=== PATIENT | female | born 1955 | race Caucasian/White ===

== ENCOUNTER 2024-02-11 08:38 | Inpatient (IN) | payer BC, MEDICARE ==
[~2024-02-11] VITALS: Ht 162.6 cm; Wt 75.5 kg
--- NOTE | 2024-02-11 09:01 | ED.PDOC ---
History of Present Illness HPI Comments 68 y/o F, with a Hx of Eliquis use, presents with c/o left foot pain, swelling, and black discoloration s/p injury, today. Patient endorses on injuring her foot on 01/20/24 after dropping a "table" object on it then. Since that day, she has had a boot cast placed over said foot. 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 She denies any numbness, weakness, tingling, or other associated symptoms or modifiers at this time. Chief Complaint: Lower Extremity Time Seen by MD: 08:45 Reviewed Notes: Nurses Notes, Medications, Allergies Allergies: Coded Allergies: Aspirin (Verified Allergy, Intermediate, 02/11/24) Flu Virus Vaccine (Verified Allergy, Intermediate, 02/11/24) Naproxen (Verified Allergy, Intermediate, 02/11/24) Penicillins (Verified Allergy, Intermediate, 02/11/24) Sulfa Antibiotics (Verified Allergy, Intermediate, 02/11/24) Tetracycline (Verified Allergy, Intermediate, 02/11/24) Yellow Dye (Verified Allergy, Intermediate, 02/11/24) Benzocaine (Verified Allergy, Mild, 02/11/24) Information Source: Patient Mode of Arrival: Ambulatory Severity: Moderate Timing: Hours Duration: Since onset Prehospital treatment: None Past Medical History PAST MEDICAL HISTORY: Cancer Past Medical History (Other): mitral valve insufficiency, pulmonary arterial HTN papillary thyroid disease, invasive cluctal carcinoma, osteoporosis Surgical History: Denies all surgeries MULTIMEDIA JOURNALIST History: Denies all MULTIMEDIA JOURNALIST Hx Family History Family History: Unknown Social History Smoker: Non-Smoker Alcohol: Denies ETOH Use Drugs: Denies Drug Use Lives In: Home Musculoskeletal: reports: others (left foot pain and swelling) Integumetry: reports: change in color (left foot black discoloration ) Physical Exam General Appearance: Moderate Distress HEENT: Normal ENT Inspection, Pharynx Normal, TMs Normal Neck: Full Range of Motion, Non-Tender, Normal, Normal Inspection Respiratory: Chest Non-Tender, Lungs Clear, No Accessory Muscle Use, No Res piratory Distress, Normal Breath Sounds Cardiovascular: No Edema, No JVD, No Murmur, No Gallop, Normal Peripheral Pulses, Regular Rate/Rhythm Breast Exam: Deferred Gastrointestinal: No Organomegaly, Non Tender, No Pulsatile Mass, Normal Bowel Sounds, Soft Genitalia: Deferred Pelvic: Deferred Rectal: Deferred Extremities: Swelling (Left lower extremity), Other (Left boot) Musculoskeletal : Apperance: Normal Neurologic: Alert, No Motor Deficits, No Sensory Deficits Cerebellar Function: NOT DONE Reflexes: NOT DONE Skin: Normal Color Peripheral Pulses: 3+ Radial (R), 3+ Radial (L) Lymphatic: No Adenopathy Was a procedure done? Was a procedure done?: No Differential Dx Considerations may include: LLE DVT, fracture, dislocation, contusions, bruising X-Ray, Labs, Meds, VS Vital Signs Date Time Temp Pulse Resp B/P (MAP) Pulse Ox O2 Delivery O2 Flow Rate FiO2 02/11/24 08:53 99.5 83 18 185/100 (128) 97 Lab Test 02/11/24 09:19 Range/Units White Blood Count 6.0 4.4-10.8 10^3/uL Red Blood Count 5.10 4.0-5.20 10^6/uL Hemoglobin 16.1 12.2-16.2 g/dL Hematocrit 47.8 H 36.0-46.0 % Mean Corpuscular Volume 93.8 80.0-100.0 fL Mean Corpuscular Hemoglobin 31.5 28.0-32.0 pg Mean Corpuscular Hemoglobin Concent 33.6 32.0-36.0 g/dL Red Cell Distribution Width 13.1 11.8-14.3 % Platelet Count 254 140-450 10^3/uL Mean Platelet Volume 8.4 6.9-10.8 fL Neutrophils (%) (Auto) 58.1 37.0-80.0 % Lymphocytes (%) (Auto) 30.1 10.0-50.0 % Monocytes (%) (Auto) 6.5 0.0-12.0 % Eosinophils (%) (Auto) 4.2 0.0-7.0 % Basophils (%) (Auto) 1.1 0.0-2.0 % Neutrophils # (Auto) 3.5 1.6-8.6 10 ^3/uL Lymphocytes # (Auto) 1.8 0.4-5.4 10 ^3/uL Monocytes # (Auto) 0.4 0-1.3 10 ^3/uL Eosinophils # (Auto) 0.3 0-0.8 10 ^3/uL Basophils # (Auto) 0.1 0-0.2 10 ^3/uL Nucleated Red Blood Cells 0.1 % Sodium Level Pending Potassium Level Pending Chloride Level Pending Carbon Dioxide Level Pending Anion Gap Pending Blood Urea Nitrogen Pending Creatinine Pending Glomerular Filtration Rate Calc Pending BUN/Creatinine Ratio Pending Serum Glucose Pending Calcium Level Pending B-Type Natriuretic Peptide Pending Patient alert. Chronic condition. Wearing a boot. Vitals stable pain Complaining of leg pain. Left lower extremity swelling. She is on Eliquis for history of PE. WBC within normal limits. Hemoglobin within normal limits. She will need MRI. Explained to the patient. Continue cardiac monitoring. Pain management. Time of 1ST Reevaluation: 09:15 Reevaluation 1ST: Unchanged Patient Education/Counseling: Diagnosis, Treatment Family Education/Counseling: No Family Present Departure 1 Departure Time of Disposition: 09:59 Impression: Primary Impression: Swelling of lower extremity Additional Impressions: Foot pain Qualified Codes: M79.672 - Pain in left foot Disorder of ligament, left ankle Disposition: ADMITTED INPATIENT Admit to: Med Surg Condition: Guarded Critical Care Note Critical Care Time?: No Stability Stability form required: No Heart Score Heart Score: Heart Score Response (Comments) Value History N/A 0 EKG N/A 0 Age N/A 0 Risk Factors N/A 0 Troponin N/A 0 Total 0 I personally scribed for TREY LAM MD ([email or web address]) on 02/11/24 at 09:00. Electronically submitted by Gabriel Nolasco [email or web address]). TREY LAM MD Feb 11, 2024 09:00
--- NOTE | 2024-02-11 09:30 | DVH ---
CHEST RADIOGRAPH Indication: sob Technique: Single frontal view of the chest was obtained COMPARISON: None FINDINGS: Lines and Tubes: None Lungs: Clear Pleura: No effusion. No pneumothorax. Cardiomediastinal contours: Unremarkable Bones: Unremarkable IMPRESSION: No acute disease.
[2024-02-11 09:38] LABS: Basophils # (auto) 0.1 10 ^3/uL (0-0.2); Basophils % (auto) 1.1 % (0.0-2.0); Eosinophils # (auto) 0.3 10 ^3/uL (0-0.8); Eosinophils % (auto) 4.2 % (0.0-7.0); Hematocrit 47.8 % (36.0-46.0); Hemoglobin 16.1 g/dL (12.2-16.2); Lymphocytes # (auto) 1.8 10 ^3/uL (0.4-5.4); Lymphocytes % (auto) 30.1 % (10.0-50.0); Mean Corpuscular Hemoglobin 31.5 pg (28.0-32.0); Mean Corpuscular Hgb Conc. 33.6 g/dL (32.0-36.0); Mean Corpuscular Volume 93.8 fL (80.0-100.0); Monocytes # (auto) 0.4 10 ^3/uL (0-1.3); Monocytes % (auto) 6.5 % (0.0-12.0); Neutrophils # (auto) 3.5 10 ^3/uL (1.6-8.6); Neutrophils % (auto) 58.1 % (37.0-80.0); Nucleated Red Blood Cells % 0.1 %; Platelet Count (auto) 254 10^3/uL (140-450); Red Cell Distribution Width 13.1 % (11.8-14.3)
[2024-02-11 10:11] LABS: Chloride 106 mmol/L (98-107); Potassium 4.2 mmol/L (3.5-5.1); Sodium 141 mmol/L (136-145)
[2024-02-11 10:12] LABS: Anion Gap 6 (5-15); Carbon Dioxide 29 mmol/L (20-31)
[2024-02-11 10:18] LABS: BUN/Creatinine Ratio 17.2 (10.0-20.0); Blood Urea Nitrogen 15 mg/dL (9-23); Glucose 100 mg/dL (74-106)
[2024-02-11] MEDS ORDERED: MORPHINE SULFATE INJ 2 MG/ml SYRG IV PRN ×2 (10:30)
[2024-02-11] MEDS ORDERED: HYDROcodone-ACET 5/325MG TAB PO PRN (10:30)
[2024-02-11] MEDS ORDERED: NITROGLYCERIN 0.4 MG SL TAB SL PRN (10:30)
[2024-02-11] MEDS ORDERED: DOCUSATE SOD 100 MG CAP PO PRN (10:30)
--- NOTE | 2024-02-11 10:30 | DVHHP2 ---
History of Present Illness Reason for Visit: Swelling of lower extremity History of Present Illness The patient is a 68-year-old female with multiple past medical history including mitral valve insufficiency, thyroid disease, and osteoporosis who presented to [facility] with complaint of left foot pain and swelling. Patient reports she had food injury January 20, 2024 after dropping a table object on her foot, it develops black discoloration, painful, and increased swelling. 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 Patient was seen and evaluated in the ED, laboratory data shows WBC 6.0 platelets 254, sodium 141, potassium 4.2, BUN 15, creatinine 0.87, GFR 73, glucose 100, BNP 37.90, blood pressure 185/100 trending down to 138/78, heart rate 72, temperature 98.2 F, O2 saturation 96% room air. Extremity venous studies shows evidence of deep venous thrombosis left lower extremity. Please see medication section in the computer. On my assessment, patient denied chest pain, no headache, no dizziness, no diaphoresis, no shortness of breath, no nausea, no vomiting, no fever, no chills. Patient was admitted for further evaluation and medical management. Past Medical History Mitral valve insufficiency, pulmonary arterial HTN papillary thyroid disease, invasive cluctal carcinoma, osteoporosis Past Surgical History Denies all surgeries Family History Reviewed, noncontributory to the management of this case. Past Social History The patient lives at home, denies smoking, alcohol or illicit drugs abuse. Review of Systems Constitutional: No: Fever, Chills, Sweats, Weakness, Malaise, Other Eyes: No: Pain, Vision change, Conjunctivae inflammation, Eyelid inflammation, Other, Redness ENT: No: Ear pain, Ear discharge, Nose pain, Nose discharge, Nose congestion, Mouth pain, Mouth swelling, Throat pain, Throat swelling, Other Respiratory: No: Cough, Dry, Shortness of breath, SOB with excertion, Wheezing, Hemoptysis, Pleuritic Pain, Sputum, Wheezing, Other Cardiovascular: No: Chest Pain, Palpitations, Orthopnea, Paroxysmal Noc. Dyspnea, Edema, Lt Headedness, Other Gastrointestinal: No: Nausea, Vomiting, Abdominal Pain, Diarrhea, Constipation, Melena, Hematochezia, Other Genitourinary: No Dysuria, No Frequency, No Incontinence, No Hematuria, No Retention, No Other Musculoskeletal: other (left foot pain and swelling.); No: neck pain, shoulder pain, arm pain, back pain, hand pain, leg pain, foot pain Skin: Rash (left foot black discoloration.); No: Lesions, Jaundice, Bruising, Other Neurological: No: Weakness, Numbness, Incoordination, Change in speech, Confusion, Seizures, Other Allergies: Coded Allergies: Aspirin (Verified Allergy, Intermediate, 02/11/24) Flu Virus Vaccine (Verified Allergy, Intermediate, 02/11/24) Naproxen (Verified Allergy, Intermediate, 02/11/24) Penicillins (Verified Allergy, Intermediate, 02/11/24) Sulfa Antibiotics (Verified Allergy, Intermediate, 02/11/24) Tetracycline (Verified Allergy, Intermediate, 02/11/24) Yellow Dye (Verified Allergy, Intermediate, 02/11/24) Benzocaine (Verified Allergy, Mild, 02/11/24) Medications Current Medications Medications Dose Ordered Sig/Reshma Route Start Time Stop Time Status Last Admin Dose Admin Levothyroxine Sodium 50 mcg QAM@0600 PO 02/12/24 06:00 UNV Apixaban 5 mg BID PO 02/11/24 22:00 UNV Sodium Chloride 10 ml Q8HR IV 02/11/24 14:00 UNV Acetaminophen/ Hydrocodone Bitart 1 tab Q4HP PRN PO 02/11/24 10:30 UNV Ondansetron HCl 4 mg Q4HP PRN IV 02/11/24 10:30 UNV Docusate Sodium 100 mg BIDPRN PRN PO 02/11/24 10:30 UNV Acetaminophen 650 mg Q6HP PRN PO 02/11/24 10:30 UNV Morphine Sulfate 2 mg Q4HPRN PRN IV 02/11/24 10:30 UNV Nitroglycerin 0.4 mg Q5MINP PRN SL 02/11/24 10:30 UNV Morphine Sulfate 2 mg Q30M PRN IV 02/11/24 10:30 UNV Exam Vital Signs Vital Signs Date Time Temp Pulse Resp B/P (MAP) Pulse Ox O2 Delivery O2 Flow Rate FiO2 02/11/24 10:08 98.6 71 20 138/78 (98) 96 98.6 General Appearance: Alert, Oriented X3, Cooperative, No acute distress HEENT: Atraumatic, PERRLA, EOMI, Mucous membr. moist/pink Respiratory: Clear to auscultation, Normal air movement Cardiovascular: Regular rate, Normal S1, Normal S2, No murmurs Abdominal: Normal bowel sounds, Soft, No tenderness, No hepatospenomegaly, No masses Extremities: No clubbing, No cyanosis, No edema, Normal pulses, Other (Left foot tenderness/swelling) Skin: No rashes, No breakdown, No significant lesion Neuro: Normal speech, Normal tone, Sensation intact, Cranial nerves 3-12 NL, Reflexes 2+, Other (Left foot weakness) Psych/Mental Status: Mental status NL, Mood NL Labs/Xrays Labs Test 02/11/24 09:19 Range/Units White Blood Count 6.0 4.4-10.8 10^3/uL Red Blood Count 5.10 4.0-5.20 10^6/uL Hemoglobin 16.1 12.2-16.2 g/dL Hematocrit 47.8 H 36.0-46.0 % Mean Corpuscular Volume 93.8 80.0-100.0 fL Mean Corpuscular Hemoglobin 31.5 28.0-32.0 pg Mean Corpuscular Hemoglobin Concent 33.6 32.0-36.0 g/dL Red Cell Distribution Width 13.1 11.8-14.3 % Platelet Count 254 140-450 10^3/uL Mean Platelet Volume 8.4 6.9-10.8 fL Neutrophils (%) (Auto) 58.1 37.0-80.0 % Lymphocytes (%) (Auto) 30.1 10.0-50.0 % Monocytes (%) (Auto) 6.5 0.0-12.0 % Eosinophils (%) (Auto) 4.2 0.0-7.0 % Basophils (%) (Auto) 1.1 0.0-2.0 % Neutrophils # (Auto) 3.5 1.6-8.6 10 ^3/uL Lymphocytes # (Auto) 1.8 0.4-5.4 10 ^3/uL Monocytes # (Auto) 0.4 0-1.3 10 ^3/uL Eosinophils # (Auto) 0.3 0-0.8 10 ^3/uL Basophils # (Auto) 0.1 0-0.2 10 ^3/uL Nucleated Red Blood Cells 0.1 % Sodium Level 141 136-145 mmol/L Potassium Level 4.2 3.5-5.1 mmol/L Chloride Level 106 98-107 mmol/L Carbon Dioxide Level 29 20-31 mmol/L Anion Gap 6 5-15 Blood Urea Nitrogen 15 9-23 mg/dL Creatinine 0.87 0.550-1.02 mg/dL Glomerular Filtration Rate Calc 73 >90 mL/min BUN/Creatinine Ratio 17.2 10.0-20.0 Serum Glucose 100 74-106 mg/dL Calcium Level 10.0 8.7-10.4 mg/dL PATIENT: PREM WATTSCCT: [id number] UNIT: [id number] : 1955 LOC: ER ROOM / BED: / AGE / SEX: 68 / F ADM STATUS: REG ER SERVICE [id number] ORDERING PHYSICIAN: TREY LAM MD PROCEDURE(s): LLDVT - LT Lower DVT REASON: dvt ORDER NUMBER(s): [id number], ACCESSION NUMBER(s): [id number] US LT LOWER DVT US 02/11/2024 10:04 AM Clinical History: dvt Comparison: None Technique: Duplex Doppler evaluation of the deep venous system of the left lower extremity from the common femoral vein to the popliteal vein including color Doppler and spectral/pulsed waveform analysis was performed. Findings: The common femoral vein demonstrates appropriate compressibility and waveform variability. There is compressibility/patency of the great saphenous vein at the proximal thigh. The femoral vein demonstrates appropriate compressibility and waveform zhen iability. The deep femoral vein demonstrates appropriate compressibility and waveform variability. The popliteal vein demonstrates appropriate compressibility and waveform variability. There is color flow in the tibioperoneal trunk and posterior tibial vein. Impression: 1. No deep venous thrombosis left lower extremity. If clinical concern/symptoms persist or worsen, short-interval follow-up study is suggested. ORDERING PHYSICIAN: TREY LAM MD PROCEDURE(s): CXRP - CHEST PORTABLE REASON: sob ORDER NUMBER(s): [id number], ACCESSION NUMBER(s): [id number] CHEST RADIOGRAPH Indication: sob Technique: Single frontal view of the chest was obtained COMPARISON: None FINDINGS: Lines and Tubes: None Lungs: Clear Pleura: No effusion. No pneumothorax. Cardiomediastinal contours: Unremarkable Bones: Unremarkable IMPRESSION: No acute disease. Assessment/Plan Assessment/Plan Swelling of lower extremity Foot pain Pain in left foot Disorder of ligament, left ankle Plan 1. Admit to med surge unit 2. Breathing treatment 3. Pain control management 4. Management of fluids and electrolytes 5. Consultation for hospitalist 6. Diagnostic tests extremity venous study 7. DVT prophylaxis-on Lovenox 8. Repeat labs CBC, CMP in a.m. 9. Continue with current medical management 10. Treatment plan discussed with patient and RN. Patient verbalized understanding. Plan discussed with: Patient, Other (RN) My Orders Orders - NAILA SANDERS DNP Procedure Category Date Status Time Levothyroxine Tablet PHA 02/12/24 Logged (Synthroid Tablet) 06:00 Apixaban (Eliquis) PHA 02/11/24 Logged 22:00 Admit ADMIT 02/11/24 Transmitted 10:21 Allergies [facility] 02/11/24 In Process 10:21 Code Status CODE 02/11/24 Transmitted 10:21 Sodium Chloride Lock PHA 02/11/24 Logged (Saline Lock Ns) 14:00 Oxygen Per Hour RT 02/11/24 Transmitted 10:21 Hydrocodone-Acet PHA 02/11/24 Logged 5/325mg Tab (Willcox 10:30 Ondansetron Hcl PHA 02/11/24 Logged (Zofran) 10:30 Docusate Sodium PHA 02/11/24 Logged Capsule (Colace 10:30 Complete Blood Count LAB 02/12/24 Verified 04:00 Comprehensive LAB 02/12/24 Verified Metabolic Panel 04:00 Cardiac DIET 02/11/24 Transmitted Diet-2gna,Lofat,Lochol Lunch Condition: Serious JOANNE 02/11/24 In Process 10:21 Acetaminophen Tablet PHA 02/11/24 Logged (Tylenol Tablet) 10:30 Bedrest With Bathroom JOANNE 02/11/24 In Process Privileg 10:21 Morphine Sulfate PHA 02/11/24 Transmitted Injection 10:30 Sequential JOANNE 02/11/24 In Process Compression Device Nitroglycerin PHA 02/11/24 Transmitted Sublingual (Ntrostat 10:30 Morphine Sulfate PHA 02/11/24 Logged Injection 10:30 Notify Of Changes JOANNE 02/11/24 In Process From Base 10:21 Emergency Dysrhythmia JOANNE 02/11/24 In Process Protocol 10:21 Oxygen By Nasal RT 02/11/24 Transmitted Cannula 10:21 Podiatry Consult CONS 02/11/24 Verified 10:28 Problem List: (1) Swelling of lower extremity (2) Foot pain (3) Pain in left foot (4) Disorder of ligament, left ankle Date of Service: Feb 11, 2024 Billing Provider: NAILA SANDERS DNP Common Visit Codes: [id number] INP/OBS CARE (HIGH) NAILA SANDERS DNP Feb 11, 2024 10:30
--- NOTE | 2024-02-11 10:40 | DVH ---
US LT LOWER DVT US 02/11/2024 10:04 AM Clinical History: dvt Comparison: None Technique: Duplex Doppler evaluation of the deep venous system of the left lower extremity from the common femor al vein to the popliteal vein including color Doppler and spectral/pulsed waveform analysis was perfo rmed. Findings: The common femoral vein demonstrates appropriate compressibility and waveform variability. There is compressibility/patency of the great saphenous vein at the proximal thigh. The femoral vein demonstrates appropriate compressibility and waveform variability. The deep femoral vein demonstrates appropriate compressibility and waveform variability. The popliteal vein demonstrates appropriate compressibility and waveform variability. There is color flow in the tibioperoneal trunk and posterior tibial vein. Impression: 1. No deep venous thrombosis left lower extremity. If clinical concern/symptoms persist or worsen, s hort-interval follow-up study is suggested.
[2024-02-11 11:43] LABS: Urine Bacteria None Seen /hpf (None Seen); Urine WBC None Seen /hpf (0 - 5)
[2024-02-11 12:14] LABS: Urine Blood Negative /uL (Negative); Urine Clarity Clear (Clear); Urine Color Light-Yellow (Yellow); Urine Protein, UAD Negative (Negative); Urine Specific Gravity 1.015 (1.001-1.035); Urine Squamous Epithelial Cell FEW /hpf (<5); Urine Urobilinogen Normal (Negative); Urine pH 6.5 (5.0-9.0)
[2024-02-11] MEDS: SODIUM CHLOR 0.9% PF (SALINE LOCK) 10ML VIAL/SYR IV SCH (14:15)
[2024-02-11 14:44] VITALS: BP 120/75; PULSE 56; RESP 18; TEMP 89; O2SAT 97
[2024-02-11 17:00] VITALS: BP 146/74; PULSE 95; TEMP 97.5; O2SAT 94
[2024-02-11] MEDS ORDERED: DILT-14 PO (19:32)
[2024-02-11] MEDS ORDERED: LEVO-848 PO (19:32)
[2024-02-11] MEDS ORDERED: LEVO50TA3 PO (19:32)
[2024-02-11] MEDS ORDERED: BECL80AE11 IN (19:32)
[2024-02-11] MEDS ORDERED: APIX5TAB PO (19:32)
[2024-02-11] MEDS ORDERED: IPRIH IN (19:34)
[2024-02-11 20:00] VITALS: BP_SYST 129; BP_SYST 132; BP_DIAS 66; BP_DIAS 68; PULSE 60; RESP 16; RESP 17; TEMP 97.7; O2SAT 97
[2024-02-11] MEDS: APIXABAN 5 MG TAB PO SCH (21:27)
[2024-02-12] VITALS (7 sets, daily range): BP systolic 106–150; BP diastolic 57–83; PULSE 57–76; RESP 13–18; TEMP 97.6–98.3; O2SAT 93–97
[2024-02-12] MEDS: LEVOTHYROXINE SODIUM 50 MCG TAB PO SCH (05:52)
[2024-02-12] MEDS ORDERED: LEVO100T8 PO (05:54)
[2024-02-12 06:52] LABS: Basophils # (auto) 0.1 10 ^3/uL (0-0.2); Eosinophils # (auto) 0.3 10 ^3/uL (0-0.8); Eosinophils % (auto) 4.6 % (0.0-7.0); Hematocrit 47.2 % (36.0-46.0); Hemoglobin 15.9 g/dL (12.2-16.2); Lymphocytes # (auto) 2.1 10 ^3/uL (0.4-5.4); Mean Corpuscular Hemoglobin 31.2 pg (28.0-32.0); Mean Corpuscular Hgb Conc. 33.6 g/dL (32.0-36.0); Mean Corpuscular Volume 92.9 fL (80.0-100.0); Monocytes # (auto) 0.5 10 ^3/uL (0-1.3); Monocytes % (auto) 7.4 % (0.0-12.0); Nucleated Red Blood Cells % 0.1 %; Platelet Count (auto) 276 10^3/uL (140-450); Red Blood Cells 5.08 10^6/uL (4.0-5.20)
[2024-02-12 07:17] LABS: Alanine Aminotransferase 21 U/L (7-40); Albumin 4.4 g/dL (3.2-4.8); Alkaline Phosphatase 82 U/L (46-116); Anion Gap 9 (5-15); Aspartate Aminotransferase 15 U/L (13-40); Blood Urea Nitrogen 12 mg/dL (9-23); Calcium 9.6 mg/dL (8.7-10.4); Carbon Dioxide 25 mmol/L (20-31); Potassium 4.2 mmol/L (3.5-5.1); Sodium 141 mmol/L (136-145); Total Protein 6.7 g/dL (5.7-8.2)
[2024-02-12 07:26] LABS: Bilirubin, Total 1.2 mg/dL (0.2-1.0); Chloride 107 mmol/L (98-107); Glucose 106 mg/dL (74-106)
[2024-02-12] MEDS ORDERED: ENOXAPARIN SOD 40 MG/0.4 ML SYRINGE SC SCH (10:00)
[2024-02-12] MEDS: ACETAMINOPHEN 325 MG TAB PO PRN (10:22)
--- NOTE | 2024-02-12 11:27 | DVHPN2 ---
Subjective Seen and examined at bedside, c/o Left foot pain 10/. Patient had trauma to the foot few months ago but has been worsening. Was seen by Dr. Thompson (Podiatry) MRI never got approved. Requiring IV Morphine for pain. Changes from previous H/P or p: No Changes Eyes: No Pain, No Vision change, No Conjunctivae inflammation, No Eyelid inflammation, No Other, No Redness ENT: No Ear pain, No Ear discharge, No Nose pain, No Nose discharge, No Nose congestion, No Mouth pain, No Mouth swelling, No Throat pain, No Throat swelling, No Other Cardiovascular: No Chest Pain, No Palpitations, No Orthopnea, No Paroxysmal Noc. Dyspnea, No Edema, No Lt Headedness, No Other Respiratory: No Cough, No Dry, No Shortness of breath, No SOB with excertion, No Wheezing, No Hemoptysis, No Pleuritic Pain, No Sputum, No Other Gastrointestinal: No Nausea, No Vomiting, No Abdominal Pain, No Diarrhea, No Constipation, No Melena, No Hematochezia, No Other Genitourinary: No Dysuria, No Frequency, No Incontinence, No Hematuria, No Retention, No Other Musculoskeletal: other (left foot pain and swelling.); No neck pain, No shoulder pain, No arm pain, No back pain, No hand pain, No leg pain, No foot pain Skin: Rash (left foot black discoloration.); No Lesions, No Jaundice, No Bruising, No Other Objective Vitals Vital Signs Date Time Temp Pulse Resp B/P (MAP) Pulse Ox O2 Delivery O2 Flow Rate FiO2 02/12/24 09:00 98.3 76 18 126/80 (95) 97 98.3 02/11/24 20:00 Nasal Cannula* 2 28 Intake/Output Intake and Output 02/12/24 07:00 Intake Total 300 ml Balance 300 ml Intake Oral 300 ml # Voids 1 General Appearance: Alert, Oriented X3, Cooperative, mild distress HEENT: Atraumatic Neck: Carotid Bruits Mayes Lungs: Clear to auscultation Cardiovascular: Regular rate, Normal S1, Normal S2 Abdomen: Normal bowel sounds, Soft Musculoskeletal: Other (Left foot swelling and erythema) Psych/Mental Status: Mental status NL Medications Current Medications Medications Dose Ordered Sig/Reshma Route Start Time Stop Time Status Last Admin Dose Admin Levothyroxine Sodium 50 mcg QAM@0600 PO 02/12/24 06:00 Apixaban 5 mg BID PO 02/11/24 22:00 02/12/24 10:22 5 MG Sodium Chloride 10 ml Q8HR IV 02/11/24 14:00 02/12/24 05:50 10 ML Acetaminophen/ Hydrocodone Bitart 1 tab Q4HP PRN PO 02/11/24 10:30 Ondansetron HCl 4 mg Q4HP PRN IV 02/11/24 10:30 Docusate Sodium 100 mg BIDPRN PRN PO 02/11/24 10:30 Acetaminophen 650 mg Q6HP PRN PO 02/11/24 10:30 02/12/24 10:22 650 MG Morphine Sulfate 2 mg Q4HPRN PRN IV 02/11/24 10:30 Nitroglycerin 0.4 mg Q5MINP PRN SL 02/11/24 10:30 Morphine Sulfate 2 mg Q30M PRN IV 02/11/24 10:30 Enoxaparin Sodium 40 mg DAILY SC 02/12/24 10:00 Hold Laboratory Results Laboratory Tests 02/12/24 05:53 Chemistry Test 02/12/24 05:53 Albumin 4.4 g/dL (3.2-4.8) Calcium Level 9.6 mg/dL (8.7-10.4) Total Protein 6.7 g/dL (5.7-8.2) LFT Test 02/12/24 05:53 Alanine Aminotransferase (ALT) 21 U/L (7-40) Alkaline Phosphatase 82 U/L (46-116) Aspartate Amino Transferase (AST) 15 U/L (13-40) Total Bilirubin 1.2 mg/dL (0.2-1.0) H HgA1c, TSH Test 02/12/24 05:53 Thyroid Stimulating Hormone (TSH) 9.35 uIU/mL (0.55-4.78) H Urinalysis Test 02/11/24 11:30 Urine Color Light-yellow (Yellow) Urine Clarity Clear (Clear) Urine pH 6.5 (5.0-9.0) Urine Specific Cora 1.015 (1.001-1.035) Urine Protein Negative (Negative) Urine Ketones Negative (Negative) Urine Blood Negative /uL (Negative) Urine Nitrite Negative (Negative) Urine Bilirubin Negative (Negative) Urine Urobilinogen Normal mg/dL (Negative) Urine Leukocyte Esterase Negative /uL (Negative) Urine RBC 2 /hpf (0 - 4) Urine WBC None seen /hpf (0 - 5) Urine Squamous Epithelial Cells Few /hpf (<5) Urine Bacteria None seen /hpf (None Seen) Urine Glucose Normal mg/dL (Normal) Assessment/Plan Assessment/Plan # Left Foot Trauma with possible Osteomyelitis rule out - MRI - IV Vanco # Intractable Pain - IV Morphine # H/o Breast and thyroid cancer # DVT Prop- Eliquis # Goals of care >18 mins FULL CODE Plan discussed with: Patient My Orders Orders - LUCÍA ARORA MD Procedure Category Date Status Time Morphine Sulfate PHA 02/12/24 Verified Injection 11:30 Mri L Foot Wo W MRI 02/12/24 Verified Contrast 11:20 Vancomycin Per PHA 02/12/24 Verified Pharmacy 11:30 Basic Metabolic Panel LAB 02/13/24 Verified 04:00 Date of Service: Feb 12, 2024 Billing Provider: LUCÍA ARORA MD Common Visit Codes: [id number] INP/OBS CARE(HIGH) Secondary Visit Codes: [id number] CARE PLAN 30 MINUTES LUCÍA ARORA MD Feb 12, 2024 11:27
[2024-02-12] MEDS ORDERED: MORPHINE SULFATE INJ 2 MG/ml SYRG IV PRN (11:30)
[2024-02-12] MEDS ORDERED: VANCOMYCIN PER PHARMACY 0 MG IV SCH (11:30)
[2024-02-12] MEDS: VANCOMYCIN 1.25GM/250ML 250 ML IV ONE (12:45)
--- NOTE | 2024-02-12 14:49 | DVH ---
EXAM: MRI MRI L FOOT WO CONTRAST HISTORY: TRAUMA COMPARISON: None TECHNIQUE: Multiplanar, multisequence MRI of the left foot was performed. FINDINGS: The visualized osseous structures demonstrate normal cortical and bone marrow signal intensity withou t evidence of fracture, trabecular bony injury, or dislocation. Minimal hallux valgus deformity and mild 1st MTP joint osteoarthritis. A subcentimeter subchondral cyst is seen in the 1st metatarsal hea d. The Lisfranc ligament is intact. The visualized portions of tibialis posterior, flexor hallucis longus, and flexor digitorum tendons a re intact. Visualized portions of peroneus longus and brevis tendons are intact. Visualized portion s of the tibialis anterior, extensor digitorum, and extensor hallucis tendons are intact. The partially visualized plantar fascia is intact. There is no evidence of intermetatarsal bursitis or Gamboa's neuroma. No significant muscle atrophy is noted. Remainder of the soft tissues are within normal limits. IMPRESSION: 1. No acute osseous or soft tissue abnormality. 2. Minimal hallux valgus deformity and mild 1st MTP joint osteoarthritis.
--- NOTE | 2024-02-12 15:01 | DVH ---
Procedure: MRI MRI L ANKLE WO CONTRAST 02/12/2024 02:20 PM Indication: TRAUMA COMPARISON: MRI MRI L FOOT WO CONTRAST on DOS: 02/12/24 TECHNIQUE: Multisequence multiplanar imaging was performed. FINDINGS: Extensor tendons: Unremarkable. Flexor tendons: Unremarkable. Peroneal tendons: Unremarkable. Syndesmotic ligaments: Unremarkable. Medial stabilizer ligaments: Unremarkable. Lateral stabilizer complex: Unremarkable. Sinus Tarsi: Unremarkable. Tarsal tunnel: Unremarkable. Achilles tendon: Unremarkable. Plantar fascia: Unremarkable. Bones/Joints: Unremarkable. Other: Unremarkable. IMPRESSION: 1. No internal derangement identified. No acute osseous or soft tissue abnormality.
[2024-02-13 01:00] VITALS: BP 116/72; PULSE 56; RESP 12; TEMP 97.9; O2SAT 95
[2024-02-13 04:39] VITALS: BP 122/73; PULSE 65; RESP 12; TEMP 98; O2SAT 95
[2024-02-13] MEDS: LEVOTHYROXINE SODIUM 50 MCG TAB PO SCH (06:00)
[2024-02-13 09:04] VITALS: BP 123/62; PULSE 59; RESP 16; TEMP 97.8; O2SAT 98
[2024-02-13 09:52] LABS: Basophils # (auto) 0.1 10 ^3/uL (0-0.2); Basophils % (auto) 1.6 % (0.0-2.0); Eosinophils # (auto) 0.2 10 ^3/uL (0-0.8); Eosinophils % (auto) 4.8 % (0.0-7.0); Hematocrit 45.8 % (36.0-46.0); Hemoglobin 15.4 g/dL (12.2-16.2); Lymphocytes # (auto) 1.7 10 ^3/uL (0.4-5.4); Lymphocytes % (auto) 33.5 % (10.0-50.0); Mean Corpuscular Hemoglobin 31.2 pg (28.0-32.0); Mean Corpuscular Hgb Conc. 33.5 g/dL (32.0-36.0); Monocytes # (auto) 0.4 10 ^3/uL (0-1.3); Monocytes % (auto) 7.1 % (0.0-12.0); Neutrophils # (auto) 2.7 10 ^3/uL (1.6-8.6); Platelet Count (auto) 236 10^3/uL (140-450); Red Blood Cells 4.93 10^6/uL (4.0-5.20); Red Cell Distribution Width 13.2 % (11.8-14.3); White Blood Cell 5.1 10^3/uL (4.4-10.8)
[2024-02-13 10:13] LABS: Potassium 3.9 mmol/L (3.5-5.1); Sodium 142 mmol/L (136-145)
[2024-02-13 10:14] LABS: Anion Gap 6 (5-15); Calcium 9.4 mg/dL (8.7-10.4); Carbon Dioxide 27 mmol/L (20-31)
[2024-02-13 10:19] LABS: BUN/Creatinine Ratio 18.3 (10.0-20.0); Blood Urea Nitrogen 15 mg/dL (9-23)
[2024-02-13 10:35] LABS: Chloride 109 mmol/L (98-107); Glucose 108 mg/dL (74-106)
[2024-02-13] MEDS: VANCOMYCIN 1GM/250ML KIT 250 ML IV ONE (11:53)
[2024-02-13 13:00] VITALS: BP 144/70; PULSE 54; RESP 16; TEMP 97.9; O2SAT 98
[2024-02-13] MEDS ORDERED: MORPHINE SULFATE INJ 2 MG/ml SYRG IV PRN (13:15)
--- NOTE | 2024-02-13 16:39 | DVHPN2 ---
Subjective left foot pain/better Reviewed: Care Plan, H&P, Labs, Medications, Previous Orders, Radiology Changes from previous H/P or p: No Changes Objective Vitals Vital Signs Date Time Temp Pulse Resp B/P (MAP) Pulse Ox O2 Delivery O2 Flow Rate FiO2 02/13/24 13:00 97.9 54 16 144/70 (94) 98 97.9 02/13/24 08:00 Nasal Cannula* 2 28 Intake/Output Intake and Output 02/13/24 07:00 Intake Total 450 ml Balance 450 ml Intake Oral 450 ml # Voids 6 # Bowel Movements 1 General Appearance: Alert, Oriented X3, Cooperative HEENT: Atraumatic Neck: Carotid [place] Lungs: Clear to auscultation Cardiovascular: Regular rate Abdomen: Normal bowel sounds, Soft Musculoskeletal: Other (Left foot swelling and erythema) Extremities: Other (left foot wnl with the ice pack) Psych/Mental Status: Mental status NL Medications Current Medications Medications Dose Ordered Sig/Reshma Route Start Time Stop Time Status Last Admin Dose Admin Apixaban 5 mg BID PO 02/11/24 22:00 02/13/24 11:58 5 MG Sodium Chloride 10 ml Q8HR IV 02/11/24 14:00 02/13/24 05:40 10 ML Acetaminophen/ Hydrocodone Bitart 1 tab Q4HP PRN PO 02/11/24 10:30 Ondansetron HCl 4 mg Q4HP PRN IV 02/11/24 10:30 Docusate Sodium 100 mg BIDPRN PRN PO 02/11/24 10:30 Acetaminophen 650 mg Q6HP PRN PO 02/11/24 10:30 02/13/24 04:02 650 MG Nitroglycerin 0.4 mg Q5MINP PRN SL 02/11/24 10:30 Enoxaparin Sodium 40 mg DAILY SC 02/12/24 10:00 Hold Vancomycin HCl 0 ml @ 0 mls/hr UD IV 02/12/24 11:30 Levothyroxine Sodium 100 mcg QAM@0600 PO 02/13/24 06:00 02/13/24 06:00 100 MCG Morphine Sulfate 1 mg Q3HPRN PRN IV 02/13/24 13:15 Diltiazem HCl 120 mg DAILY PO 02/14/24 10:00 Vancomycin HCl 750 mg/Dextrose 100 ml @ 100 mls/hr Q12H IV 02/14/24 00:00 Laboratory Results Laboratory Tests 02/13/24 09:25 Chemistry Test 02/13/24 09:25 Calcium Level 9.4 mg/dL (8.7-10.4) Urinalysis Test 02/11/24 11:30 Urine Color Light-yellow (Yellow) Urine Clarity Clear (Clear) Urine pH 6.5 (5.0-9.0) Urine Specific [place] 1.015 (1.001-1.035) Urine Protein Negative (Negative) Urine Ketones Negative (Negative) Urine Blood Negative /uL (Negative) Urine Nitrite Negative (Negative) Urine Bilirubin Negative (Negative) Urine Urobilinogen Normal mg/dL (Negative) Urine Leukocyte Esterase Negative /uL (Negative) Urine RBC 2 /hpf (0 - 4) Urine WBC None seen /hpf (0 - 5) Urine Squamous Epithelial Cells Few /hpf (<5) Urine Bacteria None seen /hpf (None Seen) Urine Glucose Normal mg/dL (Normal) Assessment/Plan Assessment/Plan LEFT FOOT PAIN HX OF LEFT FOOT TRAUMA Mitral valve insufficiency, pulmonary arterial HTN HX OF BREAST CANCER HX OF THYROID CANCER/PAPILLARY osteoporosis PLAN CORE DRIER PAIN CONTROL STOP VANCO/ NO EVIDENCE FOR OSTEOMYELITIS PER ORDERS Plan discussed with: Patient Date of Service: Feb 13, 2024 Billing Provider: ESME BURNETTE MD Common Visit Codes: [id number] INP/OBS CARE(MOD) ESME BURNETTE MD Feb 13, 2024 16:39
[2024-02-13 17:00] VITALS: BP 140/82; PULSE 73; RESP 16; TEMP 98; O2SAT 97
[2024-02-13 17:48] LABS: Free T3 2.35 pg/mL (2.3-4.2); Free T4 (Free Thyroxine) 1.04 ng/dL (0.89-1.76)
[2024-02-13 19:19] LABS: Erythrocyte Sedimentation Rate 1 mm/hr (0-20)
[2024-02-13 21:00] VITALS: BP 108/60; PULSE 60; RESP 18; TEMP 97.5; O2SAT 98
[2024-02-14] VITALS (7 sets, daily range): BP systolic 102–138; BP diastolic 59–84; PULSE 67–90; RESP 16–20; TEMP 97.2–97.8; O2SAT 90–100
[2024-02-14] MEDS ORDERED: VANCOMYCIN 750MG VIAL 750 MG in D5W 5% 100 ML IV SCH
[2024-02-14] MEDS: dilTIAZem 120MG ER CAP PO SCH (09:25)
[2024-02-14] MEDS ORDERED: LEVOTHYROXINE SODIUM 100 MCG TAB PO ONE (09:45)
[2024-02-14] MEDS: LEVOTHYROXINE SODIUM 50 MCG TAB PO ONE (11:46)
[2024-02-14] MEDS: ONDANSETRON HCL 4 MG/2 ML VIAL IV PRN (14:01)
--- NOTE | 2024-02-14 14:15 | DVH ---
CLINICAL INDICATION: pain TECHNIQUE: 3 radiographic views of the right foot were obtained. Comparison: None FINDINGS/IMPRESSION: There is no evidence of acute fracture or dislocation. The visualized joint space is well maintained. The alignment is anatomical. There is no radiopaque foreign body.
--- NOTE | 2024-02-14 14:15 | DVH ---
CLINICAL INDICATION: pain TECHNIQUE: 3 radiographic views of the left foot were obtained. Comparison: None FINDINGS/IMPRESSION: There is no evidence of acute fracture or dislocation. The visualized joint space is well maintained. The alignment is anatomical. There is no radiopaque foreign body.
--- NOTE | 2024-02-14 14:15 | DVHPN2 ---
Subjective Still pain in the left foot with weight bearing. She also developed nausea Reviewed: Care Plan, H&P, Labs, Medications, Previous Orders, Radiology Changes from previous H/P or p: No Changes Objective Vitals Vital Signs Date Time Temp Pulse Resp B/P (MAP) Pulse Ox O2 Delivery O2 Flow Rate FiO2 02/14/24 12:59 97.8 69 20 138/76 (96) 98 97.8 02/13/24 20:00 Nasal Cannula* 2 28 Intake/Output Intake and Output 02/14/24 07:00 Intake Total 1650 ml Balance 1650 ml Intake Oral 1400 ml IV Total 250 ml # Voids 4 General Appearance: Alert, Oriented X3, Cooperative HEENT: Atraumatic Neck: Carotid [place] Lungs: Clear to auscultation Cardiovascular: Regular rate Abdomen: Normal bowel sounds, Soft Musculoskeletal: Other (Left foot swelling and erythema) Extremities: Other (left foot wnl with the ice pack) Psych/Mental Status: Mental status NL Medications Current Medications Medications Dose Ordered Sig/Reshma Route Start Time Stop Time Status Last Admin Dose Admin Apixaban 5 mg BID PO 02/11/24 22:00 02/14/24 09:25 5 MG Sodium Chloride 10 ml Q8HR IV 02/11/24 14:00 02/14/24 05:25 10 ML Acetaminophen/ Hydrocodone Bitart 1 tab Q4HP PRN PO 02/11/24 10:30 Ondansetron HCl 4 mg Q4HP PRN IV 02/11/24 10:30 02/14/24 14:01 4 MG Docusate Sodium 100 mg BIDPRN PRN PO 02/11/24 10:30 Acetaminophen 650 mg Q6HP PRN PO 02/11/24 10:30 02/14/24 09:26 650 MG Nitroglycerin 0.4 mg Q5MINP PRN SL 02/11/24 10:30 Morphine Sulfate 1 mg Q3HPRN PRN IV 02/13/24 13:15 Diltiazem HCl 120 mg DAILY PO 02/14/24 10:00 02/14/24 09:25 120 MG Patient Own Medication 2 QAM PO 02/15/24 07:00 Cancel Levothyroxine Sodium 100 mcg QAM PO 02/15/24 07:00 Laboratory Results Laboratory Tests 02/13/24 09:25 02/14/24 06:49 Urinalysis Test 02/11/24 11:30 Urine Color Light-yellow (Yellow) Urine Clarity Clear (Clear) Urine pH 6.5 (5.0-9.0) Urine Specific [place] 1.015 (1.001-1.035) Urine Protein Negative (Negative) Urine Ketones Negative (Negative) Urine Blood Negative /uL (Negative) Urine Nitrite Negative (Negative) Urine Bilirubin Negative (Negative) Urine Urobilinogen Normal mg/dL (Negative) Urine Leukocyte Esterase Negative /uL (Negative) Urine RBC 2 /hpf (0 - 4) Urine WBC None seen /hpf (0 - 5) Urine Squamous Epithelial Cells Few /hpf (<5) Urine Bacteria None seen /hpf (None Seen) Urine Glucose Normal mg/dL (Normal) Assessment/Plan Assessment/Plan LEFT FOOT PAIN HX OF LEFT FOOT TRAUMA Mitral valve insufficiency, pulmonary arterial HTN HX OF BREAST CANCER HX OF THYROID CANCER/PAPILLARY osteoporosis PLAN X-rays ordered by elementary school teacher's aide. We will consider gabapentin if no pathology found Plan discussed with: Patient My Orders Orders - ESME BURNETTE MD Procedure Category Date Status Time Levothyroxine Tablet PHA 02/15/24 In Process (Synthroid Tablet) 07:00 Date of Service: Feb 14, 2024 Billing Provider: ESME BURNETTE MD Common Visit Codes: [id number] INP/OBS CARE(MOD) ESME BURNETTE MD Feb 14, 2024 14:15
--- NOTE | 2024-02-14 14:23 | DVHINCON2 ---
Date Seen: Feb 14, 2024 Reason for Consultation Left foot pain History of Present Illness The patient is a 68-year-old female with multiple past medical history including mitral valve insufficiency, thyroid disease, and osteoporosis who presented to [facility] the [facility] with complaint of left foot pain and swelling. Patient reports she had food injury January 20, 2024 after dropping a table object on her foot, it develops black discoloration, painful, and increased swelling. Patient has a boots cast placed over her left foot, concerns of possible fracture a center punch operator suggest early MRI inquire due to losing her upcoming outpatient appointment secondary to insurance issues. Patient was seen and evaluated in the ED, laboratory data shows WBC 6.0 platelets 254, sodium 141, potassium 4.2, BUN 15, creatinine 0.87, GFR 73, glucose 100, BNP 37.90, blood pressure 185/100 trending down to 138/78, heart rate 72, temperature 98.2 F, O2 saturation 96% room air. Extremity venous studies shows evidence of deep venous thrombosis left lower extremity. Please see medication section in the computer. On my assessment, patient denied chest pain, no headache, no dizziness, no diaphoresis, no shortness of breath, no nausea, no vomiting, no fever, no chills. Patient was admitted for further evaluation and medical management. Past Medical History See H&P Past Surgical History See H&P Family History: Cerebrovascular accident (CVA) G8 MOTHER G8 FATHER Diabetes mellitus G8 MOTHER Allergies: Coded Allergies: Aspirin (Verified Allergy, Intermediate, 02/11/24) Flu Virus Vaccine (Verified Allergy, Intermediate, 02/11/24) Naproxen (Verified Allergy, Intermediate, 02/11/24) Penicillins (Verified Allergy, Intermediate, 02/11/24) Sulfa Antibiotics (Verified Allergy, Intermediate, 02/11/24) Tetracycline (Verified Allergy, Intermediate, 02/11/24) Yellow Dye (Verified Allergy, Intermediate, 02/11/24) Benzocaine (Verified Allergy, Mild, 02/11/24) Banana (Verified Allergy, Unknown, 02/13/24) Latex (Verified Allergy, Unknown, 02/13/24) Methandriol (Verified Allergy, Unknown, 02/13/24) Methylparaben (Verified Allergy, Unknown, 02/13/24) Procaine (Verified Allergy, Unknown, 02/13/24) Sulfites (Verified Allergy, Unknown, 02/13/24) Tartrazine (Verified Allergy, Unknown, 02/13/24) Tetracaine (Verified Allergy, Unknown, 02/13/24) Home Meds Reported Medications Levothyroxine Sodium (Levothyroxine Sodium) 100 Mcg Tab, 100 MCG PO QAM for 30 Days, MCG 02/12/24 Ipratropium [place] Hfa (Atrovent Hfa) 17 Mcg Aer, 17 MCG IN Q6HP, AER 02/11/24 Beclomethasone Dipropionate (Qvar Redihaler) 80 Mcg/Act Aer, 80 MCG IN BID, AER 02/11/24 Apixaban Base (ELIQUIS) 5 Mg Tab, 5 MG PO BID, TAB 02/11/24 Diltiazem HCl Coated Beads (Diltiazem HCl ER) 120 Mg Cap, 120 MG PO DAILY, CAP 02/11/24 Discontinued Reported Medications Levothyroxine Sodium (SYNTHROID TABLET) 50 Mcg Tb, 1 TAB PO DAILY, #30 TAB 5 Refills 02/11/24 Levothyroxine Sodium (Synthroid) 50 Mcg Tab, 50 MCG PO DAILY, TAB 02/11/24 Current Medications Current Medications Medications (Trade) Dose Ordered Sig/Reshma Route PRN Reason Start Time Stop Time Status Last Admin Diltiazem HCl (Cardizem ER Capsule) 120 mg DAILY PO 02/14/24 10:00 02/14/24 09:25 Vancomycin HCl 750 mg/Dextrose 100 ml @ 100 mls/hr Q12H IV 02/14/24 00:00 02/13/24 16:33 DC Levothyroxine Sodium (Synthroid Tablet) 100 mcg QAM PO 02/15/24 07:00 02/14/24 10:12 DC Patient Own Medication 2 QAM PO 02/15/24 07:00 Cancel Levothyroxine Sodium (Synthroid Tablet) 100 mcg DAILY PO 02/15/24 10:00 02/14/24 10:49 DC Levothyroxine Sodium (Synthroid Tablet) 100 mcg QAM PO 02/15/24 07:00 Vital Signs Vital Signs Date Time Temp Pulse Resp B/P (MAP) Pulse Ox O2 Delivery O2 Flow Rate FiO2 02/14/24 12:59 97.8 69 20 138/76 (96) 98 97.8 02/13/24 20:00 Nasal Cannula* 2 28 Physical Exam DERMATOLOGIC EXAM: - Skin is warm, smooth, and supple bilaterally. - No erythema noted to the foot and ankle bilaterally. - No hyperkeratotic lesions noted bilaterally. - No other discolorations, lesions, or open wounds noted bilaterally. VASCULAR EXAM: - DP and PT pulses are palpable bilaterally. - RDA is brisk to all digits. - No edema noted to the leg, foot, and ankle bilaterally. NEUROLOGIC EXAM: - Normal light touch sensation to the superficial peroneal, deep peroneal, sural, saphenous, and tibial nerve branches. - Protective sensation is intact as tested with a 5.07 10g [place] Monofilament bilaterally. - No paresthesia noted on percussion of Tibial Nerve in the Tarsal Tunnel bilaterally. MUSCULOSKELETAL EXAM: - There is tenderness with Lisfranc over the 2nd and 3rd TMT - Muscle strength is 5/5 and active motion is pain-free and symmetrical bilaterally with plantarflexion, dorsiflexion, abduction, adduction, inversion, and eversion against resistance. - No pain or crepitus with passive range of motion bilaterally to all major pedal joints. Labs/Diagnostic Data Labs Test 02/14/24 06:49 02/13/24 17:17 02/13/24 09:25 02/12/24 05:53 Range/Units Creatinine 0.89 0.550-1.02 mg/dL Glomerular Filtration Rate Calc 71 >90 mL/min Erythrocyte Sedimentation Rate 1 0-20 mm/hr C-Reactive Protein High Sensitivity 0.04 <1.0 mg/dL Free Thyroxine (T4) Calculated 1.04 0.89-1.76 ng/dL Free Triiodothyronine (T3) pg/mL 2.35 2.3-4.2 pg/mL White Blood Count 5.1 # 4.4-10.8 10^3/uL Red Blood Count 4.93 4.0-5.20 10^6/uL Hemoglobin 15.4 12.2-16.2 g/dL Hematocrit 45.8 36.0-46.0 % Mean Corpuscular Volume 93.0 80.0-100.0 fL Mean Corpuscular Hemoglobin 31.2 28.0-32.0 pg Mean Corpuscular Hemoglobin Concent 33.5 32.0-36.0 g/dL Red Cell Distribution Width 13.2 11.8-14.3 % Platelet Count 236 140-450 10^3/uL Mean Platelet Volume 8.5 6.9-10.8 fL Neutrophils (%) (Auto) 53.0 37.0-80.0 % Lymphocytes (%) (Auto) 33.5 10.0-50.0 % Monocytes (%) (Auto) 7.1 0.0-12.0 % Eosinophils (%) (Auto) 4.8 0.0-7.0 % Basophils (%) (Auto) 1.6 0.0-2.0 % Neutrophils # (Auto) 2.7 1.6-8.6 10 ^3/uL Lymphocytes # (Auto) 1.7 0.4-5.4 10 ^3/uL Monocytes # (Auto) 0.4 0-1.3 10 ^3/uL Eosinophils # (Auto) 0.2 0-0.8 10 ^3/uL Basophils # (Auto) 0.1 0-0.2 10 ^3/uL Nucleated Red Blood Cells 0.0 % Sodium Level 142 136-145 mmol/L Potassium Level 3.9 3.5-5.1 mmol/L Chloride Level 109 H 98-107 mmol/L Carbon Dioxide Level 27 20-31 mmol/L Anion Gap 6 5-15 Blood Urea Nitrogen 15 9-23 mg/dL BUN/Creatinine Ratio 18.3 10.0-20.0 Serum Glucose 108 H 74-106 mg/dL Calcium Level 9.4 8.7-10.4 mg/dL Random Vancomycin Level < 3.0 L 5-10 ug/mL Total Bilirubin 1.2 H 0.2-1.0 mg/dL Aspartate Amino Transferase (AST) 15 13-40 U/L Alanine Aminotransferase (ALT) 21 7-40 U/L Alkaline Phosphatase 82 46-116 U/L Total Protein 6.7 5.7-8.2 g/dL Albumin 4.4 3.2-4.8 g/dL Thyroid Stimulating Hormone (TSH) 9.35 H 0.55-4.78 uIU/mL Test 02/11/24 11:30 02/11/24 09:19 Range/Units Urine Color Light-yellow Yellow Urine Clarity Clear Clear Urine pH 6.5 5.0-9.0 Urine Specific [place] 1.015 1.001-1.035 Urine Protein Negative Negative Urine Ketones Negative Negative Urine Blood Negative Negative /uL Urine Nitrite Negative Negative Urine Bilirubin Negative Negative Urine Urobilinogen Normal Negative mg/dL Urine Leukocyte Esterase Negative Negative /uL Urine RBC 2 0 - 4 /hpf Urine WBC None seen 0 - 5 /hpf Urine Squamous Epithelial Cells Few <5 /hpf Urine Bacteria None seen None Seen /hpf Urine Glucose Normal Normal mg/dL B-Type Natriuretic Peptide 37.90 0-100 pg/mL Problems(with codes): (1) Foot pain (2) Disorder of ligament, left ankle (3) Swelling of lower extremity (4) Pain in left foot Plan/Recommendation ASSESSMENT: Patient is a 68-year-old seen on the floor for a left foot pain PLAN: - The patients chart was reviewed, clinical findings were discussed with the patient, the etiologies of the conditions were discussed in detail, and a treatment plan was agreed to at this time, with both oral and written instructions provided. - reviewed MRI of ankle and foot - based off the injury mechanism and where her pain is, it is consistent with a Lisfranc injury - we will get weight-bearing x-rays to compare the left and right foot - depending on the x-rays we will keep her nonweightbearing on the left lower extremity - patient can can have surgery as an outpatient - we will follow up after x-rays were performed All questions were answered and concerns addressed to the patient's satisfaction. The patient was given the phone number to the clinic and was told how to make contact with the clinic should any concerns or questions arise. Patient understands that if any questions or concerns arise prior to the next appointment, we should be contacted immediately. FOLLOW-UP: Continue to follow while inpatient Plan discussed with: Patient Date of Service: Feb 14, 2024 Billing Provider: SAMANTHA STOUT DPM Common Visit Codes: [id number] INP/OBS CARE (HIGH) SAMANTHA STOUT DPM Feb 14, 2024 14:23
[2024-02-15] VITALS (8 sets, daily range): BP systolic 105–130; BP diastolic 63–75; PULSE 59–76; RESP 17–20; TEMP 97.5–98; O2SAT 94–98
[2024-02-15] MEDS: LEVOTHYROXINE SODIUM 50 MCG TAB PO SCH (06:50)
[2024-02-15] MEDS ORDERED: LEVOTHYROXINE 50 MCG PO SCH (07:00)
[2024-02-15] MEDS ORDERED: LEVOTHYROXINE SODIUM 100 MCG TAB PO SCH (07:00)
[2024-02-15] MEDS ORDERED: LEVOTHYROXINE SODIUM 50 MCG TAB PO SCH (10:00)
--- NOTE | 2024-02-15 17:47 | DVHPN2 ---
Subjective Complains of heartburn which is unusual for the patient Still pain in the left foot with weight bearing. She also has nausea and vomit with a left foot pain Reviewed: Care Plan, H&P, Labs, Medications, Previous Orders, Radiology Changes from previous H/P or p: No Changes Objective Vitals Vital Signs Date Time Temp Pulse Resp B/P (MAP) Pulse Ox O2 Delivery O2 Flow Rate FiO2 02/15/24 16:55 98.0 64 18 126/75 (92) 98 98.0 02/15/24 08:00 Nasal Cannula* 2 28 Intake/Output Intake and Output 02/15/24 07:00 Intake Total 1100 ml Balance 1100 ml Intake Oral 1100 ml # Voids 3 General Appearance: Alert, Oriented X3, Cooperative HEENT: Atraumatic Neck: Carotid Bruits [place] Lungs: Clear to auscultation Cardiovascular: Regular rate Abdomen: Normal bowel sounds, Soft Musculoskeletal: Other (Left foot swelling and erythema) Extremities: Other (left foot wnl with the ice pack) Psych/Mental Status: Mental status NL Medications Current Medications Medications Dose Ordered Sig/Reshma Route Start Time Stop Time Status Last Admin Dose Admin Apixaban 5 mg BID PO 02/11/24 22:00 02/15/24 09:40 5 MG Sodium Chloride 10 ml Q8HR IV 02/11/24 14:00 02/15/24 14:07 10 ML Acetaminophen/ Hydrocodone Bitart 1 tab Q4HP PRN PO 02/11/24 10:30 Ondansetron HCl 4 mg Q4HP PRN IV 02/11/24 10:30 02/15/24 09:41 4 MG Docusate Sodium 100 mg BIDPRN PRN PO 02/11/24 10:30 Acetaminophen 650 mg Q6HP PRN PO 02/11/24 10:30 02/14/24 09:26 650 MG Nitroglycerin 0.4 mg Q5MINP PRN SL 02/11/24 10:30 Morphine Sulfate 1 mg Q3HPRN PRN IV 02/13/24 13:15 Diltiazem HCl 120 mg DAILY PO 02/14/24 10:00 02/15/24 10:32 120 MG Patient Own Medication 2 QAM PO 02/15/24 07:00 Cancel Levothyroxine Sodium 100 mcg QAM PO 02/15/24 07:00 02/15/24 06:50 100 MCG Laboratory Results Laboratory Tests 02/13/24 09:25 02/15/24 06:52 Urinalysis Test 02/11/24 11:30 Urine Color Light-yellow (Yellow) Urine Clarity Clear (Clear) Urine pH 6.5 (5.0-9.0) Urine Specific [place] 1.015 (1.001-1.035) Urine Protein Negative (Negative) Urine Ketones Negative (Negative) Urine Blood Negative /uL (Negative) Urine Nitrite Negative (Negative) Urine Bilirubin Negative (Negative) Urine Urobilinogen Normal mg/dL (Negative) Urine Leukocyte Esterase Negative /uL (Negative) Urine RBC 2 /hpf (0 - 4) Urine WBC None seen /hpf (0 - 5) Urine Squamous Epithelial Cells Few /hpf (<5) Urine Bacteria None seen /hpf (None Seen) Urine Glucose Normal mg/dL (Normal) Assessment/Plan Assessment/Plan Heartburn of unclear etiology LEFT FOOT PAIN HX OF LEFT FOOT TRAUMA Mitral valve insufficiency, pulmonary arterial HTN HX OF BREAST CANCER HX OF THYROID CANCER/PAPILLARY osteoporosis PLAN We will start Pepcid and Carafate. We will also obtain Cardiology consultation to rule out any cardiac etiology of the heartburn. We will consult Dr. Spencer per patient's request. Awaiting further disposition by deputy sheriff generalist/bailiff. Plan discussed with: Patient, Spouse (Over the phone with the patient) Date of Service: Feb 15, 2024 Billing Provider: ESME BURNETTE MD Common Visit Codes: [id number] INP/OBS CARE(HIGH) ESME BURNETTE MD Feb 15, 2024 17:47
[2024-02-16] VITALS (7 sets, daily range): BP systolic 103–119; BP diastolic 52–70; PULSE 60–78; RESP 17–20; TEMP 97.6–98.6; O2SAT 94–99
--- NOTE | 2024-02-16 16:23 | DVHPN2 ---
Subjective The heartburn is better she complains of lightheadedness and dizziness today. Still pain in the left foot Reviewed: Care Plan, H&P, Labs, Medications, Previous Orders, Radiology Changes from previous H/P or p: No Changes Objective Vitals Vital Signs Date Time Temp Pulse Resp B/P (MAP) Pulse Ox O2 Delivery O2 Flow Rate FiO2 02/16/24 13:00 98.6 75 17 103/55 (71) 96 98.6 02/16/24 08:00 Nasal Cannula* 2 28 Intake/Output Intake and Output 02/16/24 07:00 Intake Total 1050 ml Balance 1050 ml Intake Oral 1050 ml # Voids 7 General Appearance: Alert, Oriented X3, Cooperative HEENT: Atraumatic Neck: Carotid [place] Lungs: Clear to auscultation Cardiovascular: Regular rate Abdomen: Normal bowel sounds, Soft Musculoskeletal: Other (Left foot swelling and erythema) Extremities: Other (left foot wnl with the ice pack) Psych/Mental Status: Mental status NL Medications Current Medications Medications Dose Ordered Sig/Reshma Route Start Time Stop Time Status Last Admin Dose Admin Apixaban 5 mg BID PO 02/11/24 22:00 02/16/24 09:09 5 MG Sodium Chloride 10 ml Q8HR IV 02/11/24 14:00 02/16/24 13:10 10 ML Acetaminophen/ Hydrocodone Bitart 1 tab Q4HP PRN PO 02/11/24 10:30 Ondansetron HCl 4 mg Q4HP PRN IV 02/11/24 10:30 02/16/24 13:11 4 MG Docusate Sodium 100 mg BIDPRN PRN PO 02/11/24 10:30 Acetaminophen 650 mg Q6HP PRN PO 02/11/24 10:30 02/16/24 04:50 650 MG Nitroglycerin 0.4 mg Q5MINP PRN SL 02/11/24 10:30 Morphine Sulfate 1 mg Q3HPRN PRN IV 02/13/24 13:15 Diltiazem HCl 120 mg DAILY PO 02/14/24 10:00 02/16/24 09:09 120 MG Patient Own Medication 2 QAM PO 02/15/24 07:00 Cancel Levothyroxine Sodium 100 mcg QAM PO 02/15/24 07:00 02/16/24 05:56 100 MCG Laboratory Results Laboratory Tests 02/13/24 09:25 02/15/24 06:52 Urinalysis Test 02/11/24 11:30 Urine Color Light-yellow (Yellow) Urine Clarity Clear (Clear) Urine pH 6.5 (5.0-9.0) Urine Specific [place] 1.015 (1.001-1.035) Urine Protein Negative (Negative) Urine Ketones Negative (Negative) Urine Blood Negative /uL (Negative) Urine Nitrite Negative (Negative) Urine Bilirubin Negative (Negative) Urine Urobilinogen Normal mg/dL (Negative) Urine Leukocyte Esterase Negative /uL (Negative) Urine RBC 2 /hpf (0 - 4) Urine WBC None seen /hpf (0 - 5) Urine Squamous Epithelial Cells Few /hpf (<5) Urine Bacteria None seen /hpf (None Seen) Urine Glucose Normal mg/dL (Normal) Assessment/Plan Assessment/Plan Heartburn of unclear etiology Lightheadedness and dizziness LEFT FOOT PAIN HX OF LEFT FOOT TRAUMA Mitral valve insufficiency, pulmonary arterial HTN HX OF BREAST CANCER HX OF THYROID CANCER/PAPILLARY osteoporosis PLAN Obtain echocardiogram and carotid ultrasound. Cardiology still pending. Further plan per orders Plan discussed with: Patient My Orders Orders - ESME BURNETTE MD Procedure Category Date Status Time * Cardiology Consult CONS 02/15/24 Transmitted 17:56 Date of Service: Feb 16, 2024 Billing Provider: ESME UBRNETTE MD Common Visit Codes: [id number] INP/OBS CARE(HIGH) ESME BURNETTE MD Feb 16, 2024 16:23
--- NOTE | 2024-02-16 17:18 | DVH ---
CAROTID DOPPLER ULTRASOUND HISTORY: diziness COMPARISON: None TECHNIQUE: Real time freedman scale, color Doppler, and spectral duplex images are obtained through the c arotid and vertebral arteries. Findings: Peak systolic velocity right internal carotid artery is 109 cm/s and right common carotid artery is 6 6 cm/s. Ratio is 1.7. Antegrade flow noted in right vertebral artery. No significant atherosclerotic plaque noted within the right carotid arterial system. Peak systolic velocity left internal carotid artery is 79 cm/s and left common carotid artery is 86 c m/s. Ratio is 0.9. Antegrade flow noted in left vertebral artery. No significant atherosclerotic plaq ue noted within the left carotid arterial system. Impression: 1. No evidence of hemodynamically significant stenosis within the bilateral carotid arterial systems. 2. Antegrade flow within bilateral vertebral arteries.
[2024-02-16 18:17] LABS: Basophils # (auto) 0.1 10 ^3/uL (0-0.2); Basophils % (auto) 1.8 % (0.0-2.0); Eosinophils # (auto) 0.4 10 ^3/uL (0-0.8); Eosinophils % (auto) 6.1 % (0.0-7.0); Hematocrit 44.6 % (36.0-46.0); Hemoglobin 15.1 g/dL (12.2-16.2); Lymphocytes # (auto) 2.3 10 ^3/uL (0.4-5.4); Lymphocytes % (auto) 33.7 % (10.0-50.0); Mean Corpuscular Hemoglobin 31.4 pg (28.0-32.0); Mean Corpuscular Hgb Conc. 33.8 g/dL (32.0-36.0); Mean Corpuscular Volume 92.7 fL (80.0-100.0); Monocytes # (auto) 0.6 10 ^3/uL (0-1.3); Monocytes % (auto) 9.4 % (0.0-12.0); Neutrophils # (auto) 3.3 10 ^3/uL (1.6-8.6); Platelet Count (auto) 245 10^3/uL (140-450); Red Blood Cells 4.82 10^6/uL (4.0-5.20); Red Cell Distribution Width 12.9 % (11.8-14.3); White Blood Cell 6.7 10^3/uL (4.4-10.8)
[2024-02-16 18:39] LABS: Alanine Aminotransferase 13 U/L (7-40); Alkaline Phosphatase 72 U/L (46-116); Anion Gap 6 (5-15); Aspartate Aminotransferase 14 U/L (13-40); BUN/Creatinine Ratio 17.4 (10.0-20.0); Bilirubin, Total 0.5 mg/dL (0.2-1.0); Blood Urea Nitrogen 16 mg/dL (9-23); CRP High Sensitivity 0.05 mg/dL (<1.0); Calcium 9.2 mg/dL (8.7-10.4); Carbon Dioxide 27 mmol/L (20-31); Glucose 93 mg/dL (74-106); Sodium 141 mmol/L (136-145)
[2024-02-16 18:40] LABS: Chloride 108 mmol/L (98-107); Total Protein 6.2 g/dL (5.7-8.2)
[2024-02-16 19:06] LABS: Erythrocyte Sedimentation Rate 1 mm/hr (0-20)
--- NOTE | 2024-02-16 19:54 | DVHINCON2 ---
Date Seen: Feb 16, 2024 Referring Physician MD Neftali Reason for Consultation Heartburn History of Present Illness This is a 68-year-old female who presented to the emergency room with a chief complaint of left lower extremity pain. The patient who experienced a left lower extremity injury on 01/20/2024 presented with a chief complaint of pain, swelling, and discoloration. During admission, the patient complaint of heartburn prompting cardiology evaluation. Denies chest pain, palpitations, diaphoresis, shortness of breath, or syncopal events. Complains of dizziness when ambulating and epigastric burning sensation. She has a significant history of cardiovascular disease for which he follows up in the outpatient setting with Dr. Spencer. Reports undergoing an event monitor for 14 days during the past year and with findings of unspecified atrial fibrillation. Reports undergoing a cardiac catheterization without catheter based intervention given no coronary artery disease at [facility] on 2022. There was no baseline 12 lead electrocardiogram on file. Patient is admitted to Med/Surg with no personnel monitor to review at this time. Significant medical history includes paroxysmal atrial fibrillation on Cardizem and Eliquis therapy, nonrheumatic mitral valve insufficiency, pulmonary arterial hypertension, arthritis, osteoporosis, papillary thyroid cancer status post thyroidectomy, invasive ductal carcinoma of the right breast, extreme fatigue syndrome on O2 at 2 L, hearing loss with hearing aid use, and obesity. Past Medical History Past medical history reviewed. No other significant than mentioned above. Past Surgical History Left breast tumor (fibroadenoma), 1999 Bilateral eye laser, 2019 and 2021 Thyroidectomy, 2010 Rotator cuff, 2003 Partial hysterectomy, 1998 Tonsillectomy/adenectomy, 1963 Family History: Cerebrovascular accident (CVA) G8 MOTHER G8 FATHER Diabetes mellitus G8 MOTHER Family History Family history reviewed. Per patient brother, mother, and maternal grandmother all from sudden cardiac in the 50s-70s. Social History Denies the use of illicit drugs, alcohol, or tobacco use. Allergies: Coded Allergies: Aspirin (Verified Allergy, Intermediate, 02/11/24) Flu Virus Vaccine (Verified Allergy, Intermediate, 02/11/24) Naproxen (Verified Allergy, Intermediate, 02/11/24) Penicillins (Verified Allergy, Intermediate, 02/11/24) Sulfa Antibiotics (Verified Allergy, Intermediate, 02/11/24) Tetracycline (Verified Allergy, Intermediate, 02/11/24) Yellow Dye (Verified Allergy, Intermediate, 02/11/24) Benzocaine (Verified Allergy, Mild, 02/11/24) Banana (Verified Allergy, Unknown, 02/13/24) Latex (Verified Allergy, Unknown, 02/13/24) Methandriol (Verified Allergy, Unknown, 02/13/24) Methylparaben (Verified Allergy, Unknown, 02/13/24) Procaine (Verified Allergy, Unknown, 02/13/24) Sulfites (Verified Allergy, Unknown, 02/13/24) Tartrazine (Verified Allergy, Unknown, 02/13/24) Tetracaine (Verified Allergy, Unknown, 02/13/24) Home Meds Reported Medications Levothyroxine Sodium (Levothyroxine Sodium) 100 Mcg Tab, 100 MCG PO QAM for 30 Days, MCG 02/12/24 Ipratropium [place] Hfa (Atrovent Hfa) 17 Mcg Aer, 17 MCG IN Q6HP, AER 02/11/24 Beclomethasone Dipropionate (Qvar Redihaler) 80 Mcg/Act Aer, 80 MCG IN BID, AER 02/11/24 Apixaban Base (ELIQUIS) 5 Mg Tab, 5 MG PO BID, TAB 02/11/24 Diltiazem HCl Coated Beads (Diltiazem HCl ER) 120 Mg Cap, 120 MG PO DAILY, CAP 02/11/24 Discontinued Reported Medications Levothyroxine Sodium (SYNTHROID TABLET) 50 Mcg Tb, 1 TAB PO DAILY, #30 TAB 5 Refills 02/11/24 Levothyroxine Sodium (Synthroid) 50 Mcg Tab, 50 MCG PO DAILY, TAB 02/11/24 Home Meds Home medications reviewed. Review of Systems Constitutional: No symptom reported Ears, Nose, & Throat: No symptom reported Eyes: No symptom reported Neurological: Dizziness Pulmonary/Respiratory: No symptom reported Cardiovascular: No symptom reported Gastrointestinal: Heartburn Genitourinary: No symptom reported Musculoskeletal: Left lower extremity pain Skin: No symptom reported Psychiatric: No symptom reported Endocrine: No symptom reported Hemotologic/Lymphatic: No symptom reported Vital Signs Vital Signs Date Time Temp Pulse Resp B/P (MAP) Pulse Ox O2 Delivery O2 Flow Rate FiO2 02/16/24 17:00 97.6 74 18 119/70 (86) 96 97.6 02/16/24 08:00 Nasal Cannula* 2 28 Physical Exam General Appearance: Cooperative. Well developed. Well nourished. In no acute distress Head Exam: Normal inspection Neck Exam: Normal inspection. Non-tender. Normal alignment Pulmonary/Respiratory: Chest non-tender. Clear bilateral breath sounds Cardiovascular/Chest: Regular rate and rhythm. S1, S2. NSR. No murmurs. No JVD. Peripheral Pulses: 2+ Radial (R). 2+ Radial (L). 2+ Pedal (R). 2+ Pedal (L) Abdominal Exam: Normal bowel sounds. Soft. Nontender. No hepatospenomegaly. No masses Ankle Exam: Negative right ankle edema Lower extremities: Negative right lower extremity edema. Left lower extremity brace/immobilizer. Neuro/Mental Status: A&O x4. Coherent Thoughts/Psych: Normal thought pattern. Appropriate mood and affect. Good judgement and insight Appearance: In no acute distress Skin Exam: Normal inspection. Normal color. Warm. Dry Labs/Diagnostic Data Labs Test 02/16/24 17:52 02/13/24 17:17 02/13/24 09:25 02/12/24 05:53 Range/Units White Blood Count 6.7 # 4.4-10.8 10^3/uL Red Blood Count 4.82 4.0-5.20 10^6/uL Hemoglobin 15.1 12.2-16.2 g/dL Hematocrit 44.6 36.0-46.0 % Mean Corpuscular Volume 92.7 80.0-100.0 fL Mean Corpuscular Hemoglobin 31.4 28.0-32.0 pg Mean Corpuscular Hemoglobin Concent 33.8 32.0-36.0 g/dL Red Cell Distribution Width 12.9 11.8-14.3 % Platelet Count 245 140-450 10^3/uL Mean Platelet Volume 8.5 6.9-10.8 fL Neutrophils (%) (Auto) 49.0 37.0-80.0 % Lymphocytes (%) (Auto) 33.7 10.0-50.0 % Monocytes (%) (Auto) 9.4 0.0-12.0 % Eosinophils (%) (Auto) 6.1 0.0-7.0 % Basophils (%) (Auto) 1.8 0.0-2.0 % Neutrophils # (Auto) 3.3 1.6-8.6 10 ^3/uL Lymphocytes # (Auto) 2.3 0.4-5.4 10 ^3/uL Monocytes # (Auto) 0.6 0-1.3 10 ^3/uL Eosinophils # (Auto) 0.4 0-0.8 10 ^3/uL Basophils # (Auto) 0.1 0-0.2 10 ^3/uL Nucleated Red Blood Cells 0.0 % Erythrocyte Sedimentation Rate 1 0-20 mm/hr D-Dimer, Quantitative < 0.19 0.0-0.49 mg/L FEU Sodium Level 141 136-145 mmol/L Potassium Level 4.0 3.5-5.1 mmol/L Chloride Level 108 H 98-107 mmol/L Carbon Dioxide Level 27 20-31 mmol/L Anion Gap 6 5-15 Blood Urea Nitrogen 16 9-23 mg/dL Creatinine 0.92 0.550-1.02 mg/dL Glomerular Filtration Rate Calc 69 >90 mL/min BUN/Creatinine Ratio 17.4 10.0-20.0 Serum Glucose 93 74-106 mg/dL Calcium Level 9.2 8.7-10.4 mg/dL Total Bilirubin 0.5 0.2-1.0 mg/dL Aspartate Amino Transferase (AST) 14 13-40 U/L Alanine Aminotransferase (ALT) 13 7-40 U/L Alkaline Phosphatase 72 46-116 U/L C-Reactive Protein High Sensitivity 0.05 <1.0 mg/dL Total Protein 6.2 5.7-8.2 g/dL Albumin 4.0 3.2-4.8 g/dL Free Thyroxine (T4) Calculated 1.04 0.89-1.76 ng/dL Free Triiodothyronine (T3) pg/mL 2.35 2.3-4.2 pg/mL Random Vancomycin Level < 3.0 L 5-10 ug/mL Thyroid Stimulating Hormone (TSH) 9.35 H 0.55-4.78 uIU/mL Test 02/11/24 11:30 02/11/24 09:19 Range/Units Urine Color Light-yellow Yellow Urine Clarity Clear Clear Urine pH 6.5 5.0-9.0 Urine Specific [place] 1.015 1.001-1.035 Urine Protein Negative Negative Urine Ketones Negative Negative Urine Blood Negative Negative /uL Urine Nitrite Negative Negative Urine Bilirubin Negative Negative Urine Urobilinogen Normal Negative mg/dL Urine Leukocyte Esterase Negative Negative /uL Urine RBC 2 0 - 4 /hpf Urine WBC None seen 0 - 5 /hpf Urine Squamous Epithelial Cells Few <5 /hpf Urine Bacteria None seen None Seen /hpf Urine Glucose Normal Normal mg/dL B-Type Natriuretic Peptide 37.90 0-100 pg/mL Assessment Exertional dizziness Rule out structural heart disease Rule out tachyarrhythmias Paroxysmal atrial fibrillation, on Cardizem/Eliquis therapy Mitral valve insufficiency Plan/Recommendation (Dr. Tyler) The patient complains of exertional dizziness and heartburn during admission. She underwent an event monitor for 14 days within the past year with Dr. Spencer with findings consistent with unspecified atrial fibrillation for which the patient is on Cardizem and Eliquis therapy. She also underwent a cardiac catheterization without catheter based intervention given no evidence of coronary artery disease within the past two years at [facility]. We will continue with a baseline 12 lead electrocardiogram and upgrade to telemetry to monitor for tachyarrhythmias overnight. She will also undergo a transthoracic echocardiogram to rule out structural heart disease. Reports a history of pulmonary hypertension, nevertheless aforementioned images revealed normal pulmonary pressures. Monitor ECG changes closely and notify. Initiate PPI and GI cocktail. Thank you for allowing us to participate in this patient's care. Please call if you have any questions or concerns. This medical document was created using an electronic medical record system with voice recognition software and computerized dictation system. Although this document has been carefully reviewed, there might still be some phonetic and t ypographical errors. Occasional wrong-word or ``sound-alike substitutions may have occurred due to the inherent limitations of voice recognition software. These areas are purely typographical due to imperfections of the software programs and do not reflect any compromise in the patient's medical care. Please read the chart carefully and recognize, using context, where these treviño bstitutions have occurred. Plan discussed with: Patient, Other Date of Service: Feb 16, 2024 Billing Provider: CECIL RINCON MD Cardiology Common Codes: [id number] INP/OBS CARE (High) ALONSOMARIA DOLORES TIRADO PLANT [employer]UMENT ENGINEER Feb 16, 2024 19:54
--- NOTE | 2024-02-16 20:33 | DVH ---
EXAM: CT HEAD WITHOUT CONTRAST INDICATION: dizziness TECHNIQUE: CT of the head without intravenous contrast. Radiation Dose Information: CT Dose: CTDI volume is 51.6 mGy. Dose-length product is 724.15 mGy*cm The dose indicators for CT are the volume Computed Tomography (CT) Dose Index (CTDIvol) and the Dose Length Product (DLP), and are measured in units of mGy and mGy-cm, respectively. These indicators are not patient dose, but values generated from the CT scanner acquisition factors. The report includes radiation exposure data for exposures received during this examination. COMPARISON: None FINDINGS: There is no evidence of acute intracranial hemorrhage, extra-axial collection, mass effect, midline s hift, herniation or hydrocephalus. The ventricles, sulci and cisterns are age appropriate. The freedman-white differentiation is intact. Patchy periventricular and subcortical white matter hypoattenuation is nonspecific but may be related to small vessel ischemic disease. The visualized paranasal sinuses and mastoid air cells are clear. The surrounding soft tissues and osseous structures are unremarkable. IMPRESSION: 1. No acute intracranial hemorrhage. 2. No CT findings of territorial ischemia. HS:Y
[2024-02-16] MEDS: PANTOPRAZOLE 40 MG/10 ML VIAL INJ IV ONE (21:49)
[2024-02-16] MEDS: LIDOCAINE VISCOUS 2% 15ML UD PO ONE (21:53)
[2024-02-16] MEDS: DONNATAL 5ml ORAL Elix (BELLADONNA ALK-PHENOBARB) PO ONE (21:54)
[2024-02-16] MEDS: MAALOX PLUS or MAALOX 30 ML PO ONE (21:55)
--- NOTE | 2024-02-16 22:02 | DVHSR ---
APPROVED REPORT EXAM: Two-dimensional and M-mode echocardiogram with Doppler and color Doppler. Blood Pressure: 103/55 mmHg INDICATION Dizziness and lightheadedness RISK FACTORS Height: 5'4", Weight: 169 DIMENSIONS LVDd4.0 (3.8-5.7cm)LA (2D)4.1 (1.9-4.0cm)Aortic Root3.4 (2.0-3.7cm) LVDs2.7 (2.5-4.0cm)LA (MM) (1.9-4.0cm)Aortic Cusp Exc1.7 (1.5-2.0cm) EF (%) 60.0 (55-70%)Rt. Atrium3.9 (1.9-4.0cm)Asc. Aorta cm IVSd0.9 (0.7-1.1cm)RV (D)4.1 (1.8-2.4cm) PWd0.8 (0.7-1.1cm) Mitral Valve MitralMitral Stenosis E wave0.77m/sMV Mean GR.mmHg A wave1.14m/sMV Peak GR.mmHg E/A ratio0.72D MVAcm2 DECEL [id number] 1/2 Timems Aortic Valve Aortic ValveAortic Stenosis V11.06m/Greg Mean GR.3mmHg V21.15m/Greg Peak GR.5mmHg LVOT Diameter2.0 (1.8-2.4cm)Doppler AVA2.89cm2 Pulmonic Valve V20.91m/s Tricuspid Valve TR Velocity2.63m/s [id number] LEFT VENTRICLE The left ventricle is normal size. There is normal left ventricular wall thickness. The left ventricle is normal in structure and function, LVEF is 60%. Normal diastoilc function. Not well visualized, but wall motion appears grossly normal. RIGHT VENTRICLE The right ventricle is grossly normal size. The right ventricular systolic function is normal. ATRIA The left atrial size is normal. The right atrium size is normal. MITRAL VALVE The mitral valve leaflets appear thickened, but open well. Mitral regurgitation is trace. PULMONIC VALVE The pulmonic valve is not well visualized. TRICUSPID VALVE The tricuspid valve is grossly normal. There is mild tricuspid regurgitation. AORTIC VALVE The aortic valve is trileaflet. The aortic valve is mildlycalcified. No aortic regurgitation is present. No evidence of aortic valve stenosis. GREAT VESSELS The aortic root is normal size. PERICARDIAL EFFUSION No evidence of pericardial effusion. Other Information Quality : LimitedRhythm : Technically limited study due to body habitus. Conclusion The left ventricle is normal size. There is normal left ventricular wall thickness. The left ventricl e is normal in structure and function, LVEF is 60%. Normal diastoilc function. Not well visualized, b ut wall motion appears grossly normal. The right ventricle is grossly normal size. The right ventricular systolic function is normal. The left and right atrial size is normal. No significant valvular abnormalities. No evidence of pericardial effusion.
[2024-02-17] VITALS (7 sets, daily range): BP systolic 112–137; BP diastolic 60–76; PULSE 55–69; RESP 18–20; TEMP 97.4–97.8; O2SAT 94–98
[2024-02-17 07:56] LABS: Triglycerides 127 mg/dL (< 150)
[2024-02-17 07:58] LABS: HDL Cholesterol 50 mg/dL (40-59)
[2024-02-17 07:59] LABS: Cholesterol 244 mg/dL (< 200); LDL Cholesterol 190 mg/dL (< 100)
--- NOTE | 2024-02-17 08:11 | ECG ---
[facility] Test Date: 2024-02-16 Test Time: 21:56:30 Pat Name: PREM WATTS Department: Respiratoy Room: 0297T B Gender: F Mail Messenger: NIGEL : 1955 Requested By: MARIA DOLORES ALONSO Order Number: [id number] Reading MD: Esa Delgado Measurements Intervals [place] Rate: 56 P: 43 OR: 157 QRS: 45 QRSD: 96 T: 23 QT: 467 QTc: 451 Interpretive Statements Sinus rhythm Low voltage, precordial leads Electronically Signed On 02-17-2024 8:53:01 PST by Esa Delgado Please click the below link to view image of tracing.
--- NOTE | 2024-02-17 08:19 | ECG ---
[facility] Test Date: 2024-02-16 Test Time: 21:55:38 Pat Name: PREM WATTS Department: Respiratoy Room: 0297T B Gender: F Charge Aide: NIGEL : 1955 Requested By: CECIL RINCON Order Number: [id number] Reading MD: Esa Delgado Measurements Intervals [place] Rate: 61 P: 52 NJ: 153 QRS: 38 QRSD: 104 T: -2 QT: 454 QTc: 458 Interpretive Statements Sinus rhythm Low voltage, precordial leads Borderline T abnormalities, diffuse leads Electronically Signed On 02-17-2024 8:52:58 PST by Esa Delgado Please click the below link to view image of tracing.
[2024-02-17] MEDS: PANTOPRAZOLE 40 MG/10 ML VIAL INJ IV SCH (10:02)
--- NOTE | 2024-02-17 13:55 | DVHPN2 ---
GAVINMARIA ODLORES [facility] 02/17/24 1355: Consult Progress Note Date Seen: Feb 17, 2024 Subjective Review of Systems: CVS:Normal, RESPIRATORY:Normal, NEURO:Abnormal Other Systems: C/o diziness Objective vital signs Vital Sign Date Time Temp Pulse Resp B/P (MAP) Pulse Ox O2 Delivery O2 Flow Rate FiO2 02/17/24 12:50 97.5 66 18 112/64 (80) 95 97.5 02/17/24 08:00 Nasal Cannula* 2 28 Total Intake and Output 02/16/24 02/16/24 02/17/24 15:00 23:00 07:00 Intake Total 450 ml 775 ml Balance 450 ml 775 ml medications Current Medications Medications Dose Ordered Sig/Reshma Route Start Time Stop Time Status Last Admin Dose Admin Apixaban 5 mg BID PO 02/11/24 22:00 02/17/24 10:02 5 MG Sodium Chloride 10 ml Q8HR IV 02/11/24 14:00 02/17/24 13:32 10 ML Acetaminophen/ Hydrocodone Bitart 1 tab Q4HP PRN PO 02/11/24 10:30 Ondansetron HCl 4 mg Q4HP PRN IV 02/11/24 10:30 02/17/24 13:31 4 MG Docusate Sodium 100 mg BIDPRN PRN PO 02/11/24 10:30 Acetaminophen 650 mg Q6HP PRN PO 02/11/24 10:30 02/17/24 13:31 650 MG Nitroglycerin 0.4 mg Q5MINP PRN SL 02/11/24 10:30 Morphine Sulfate 1 mg Q3HPRN PRN IV 02/13/24 13:15 Diltiazem HCl 120 mg DAILY PO 02/14/24 10:00 02/17/24 10:03 120 MG Patient Own Medication 2 QAM PO 02/15/24 07:00 Cancel Levothyroxine Sodium 100 mcg QAM PO 02/15/24 07:00 02/17/24 06:14 100 MCG Pantoprazole Sodium 40 mg DAILY IV 02/17/24 10:00 02/17/24 10:02 40 MG Examination: LUNGS:Normal, CVS:Normal, NEURO:Normal laboratory and microbiology Laboratory Tests 02/16/24 17:52 Test 02/16/24 17:52 Range/Units Serum Glucose 93 74-106 mg/dL Problem List/Assessment/Plan Problem List/Assessment/Plan Exertional dizziness Rule out tachyarrhythmias Paroxysmal atrial fibrillation, on Cardizem/Eliquis therapy Dyslipidemia, newly diagnosed Hx thyroidectomy Plan/Recommendation (Dr. Tyler) The patient complains of exertional dizziness and heartburn during admission for which Cardiology was consulted. She underwent an event monitor for 14 days within the past year with Dr. Spencer with findings consistent with unspecified atrial fibrillation for which the patient is on Cardizem and Eliquis therapy. She also underwent a cardiac catheterization without catheter based intervention given no evidence of coronary artery disease within the past two years at [facility]. A 12 lead electrocardiogram was obtained revealing a normal sinus rhythm. property assessment monitor reviewed without findings of tachyarrhythmias and sinus bradycardia. Transthoracic echocardiogram is unremarkable revealing an LVEF of 60% without evidence of PAH or valve abnormalities. Initiate lipid lowering agent. Follow-up with primary [place] guide, Dr. Spencer, as scheduled. There is no further cardiac work-up indicated at this time. Kindly call if in need to re-consult. Thank you for allowing us to participate in this patient's care. This medical document was created using an electronic medical record system with voice recognition software and computerized dictation system. Although this document has been carefully reviewed, there might still be some phonetic and typographical errors. Occasional wrong-word or ``sound-alike substitutions may have occurred due to the inherent limitations of voice recognition software. These areas are purely typographical due to imperfections of the software programs and do not reflect any compromise in the patient's medical care. Please read the chart carefully and recognize, using context, where these substitutions have occurred. Plan discussed with: Patient, Spouse, Other Date of Service: Feb 17, 2024 Billing Provider: GIANCARLO OLIVARES MD Cardiology Common Codes: [id number] HOSP CARE(High GIANCARLO OLIVARES MD 02/17/24 1422: MARIA DOLORES ALONSO [facility] Feb 17, 2024 13:55 GIANCARLO OLIVARES MD Feb 17, 2024 14:22
--- NOTE | 2024-02-17 18:11 | DVHPN2 ---
Subjective Patient was still requesting to speak with brake lining curer regarding left ankle fracture and plan of care. Also still reports having nausea with intermittent vomiting when attempting to ambulate. Reviewed: Care Plan, H&P, Labs, Medications, Previous Orders, Radiology Changes from previous H/P or p: No Changes General: Per HPI Objective Vitals Vital Signs Date Time Temp Pulse Resp B/P (MAP) Pulse Ox O2 Delivery O2 Flow Rate FiO2 02/17/24 17:00 97.8 60 18 115/63 (80) 97 97.8 02/17/24 08:00 Nasal Cannula* 2 28 Intake/Output Intake and Output 02/17/24 07:00 Intake Total 1225 ml Balance 1225 ml Intake Oral 1225 ml # Voids 3 General Appearance: Alert, Oriented X3, Cooperative HEENT: Atraumatic Neck: Carotid Bruits [place] Lungs: Clear to auscultation Cardiovascular: Regular rate Abdomen: Normal bowel sounds, Soft Musculoskeletal: Other (Left foot swelling and erythema) Extremities: Other (left foot wnl with the ice pack) Psych/Mental Status: Mental status NL Medications Current Medications Medications Dose Ordered Sig/Reshma Route Start Time Stop Time Status Last Admin Dose Admin Apixaban 5 mg BID PO 02/11/24 22:00 02/17/24 10:02 5 MG Sodium Chloride 10 ml Q8HR IV 02/11/24 14:00 02/17/24 13:32 10 ML Acetaminophen/ Hydrocodone Bitart 1 tab Q4HP PRN PO 02/11/24 10:30 Ondansetron HCl 4 mg Q4HP PRN IV 02/11/24 10:30 02/17/24 13:31 4 MG Docusate Sodium 100 mg BIDPRN PRN PO 02/11/24 10:30 Acetaminophen 650 mg Q6HP PRN PO 02/11/24 10:30 02/17/24 13:31 650 MG Nitroglycerin 0.4 mg Q5MINP PRN SL 02/11/24 10:30 Morphine Sulfate 1 mg Q3HPRN PRN IV 02/13/24 13:15 Diltiazem HCl 120 mg DAILY PO 02/14/24 10:00 02/17/24 10:03 120 MG Patient Own Medication 2 QAM PO 02/15/24 07:00 Cancel Levothyroxine Sodium 100 mcg QAM PO 02/15/24 07:00 02/17/24 06:14 100 MCG Pantoprazole Sodium 40 mg DAILY IV 02/17/24 10:00 02/17/24 10:02 40 MG Atorvastatin Calcium 40 mg HS PO 02/17/24 22:00 Laboratory Results Laboratory Tests 02/16/24 17:52 Lipid panel Test 02/17/24 07:01 Cholesterol Level 244 mg/dL (< 200) H HDL Cholesterol 50 mg/dL (40-59) Triglycerides Level 127 mg/dL (< 150) HgA1c, TSH Test 02/17/24 07:01 Hemoglobin A1c 5.4 % A1C (<5.7) Urinalysis Test 02/11/24 11:30 Urine Color Light-yellow (Yellow) Urine Clarity Clear (Clear) Urine pH 6.5 (5.0-9.0) Urine Specific [place] 1.015 (1.001-1.035) Urine Protein Negative (Negative) Urine Ketones Negative (Negative) Urine Blood Negative /uL (Negative) Urine Nitrite Negative (Negative) Urine Bilirubin Negative (Negative) Urine Urobilinogen Normal mg/dL (Negative) Urine Leukocyte Esterase Negative /uL (Negative) Urine RBC 2 /hpf (0 - 4) Urine WBC None seen /hpf (0 - 5) Urine Squamous Epithelial Cells Few /hpf (<5) Urine Bacteria None seen /hpf (None Seen) Urine Glucose Normal mg/dL (Normal) Labs and/or images reviewed: Labs reviewed by me, Image(s) reviewed by me Assessment/Plan Assessment/Plan Impression: -? A Lisfranc fracture to left ankle -acute on chronic hypoxic respiratory failure -intractable nausea and vomiting -dyslipidemia -atrial fibrillation Plan: -cardiology consultation: Recommendations reviewed -podiatry consultation: Please discuss with patient plan of care as she still has questions -pain management -antiemetics -continue anticoagulation -reassess for discharge in a.m. -discussed findings of CT scan of the head as well as carotid Doppler study. Total time spent with patient and family regarding advance care plannin minutes. Total time spent with patient discussing and formulating plan of care: 35 minutes. This medical document was created using an electronic medical record system with [employer] system. Although this document has been carefully reviewed, there may still be some phonetic and typographical errors. These areas are purely typographical due to imperfections of the software programs, and do not reflect any compromise in the patient's medical care. Plan discussed with: Patient, Other (RN) My Orders Orders - ANNALISA GRIFFIN NP Procedure Category Date Status Time *Podiatry Consult CONS 02/17/24 Transmitted Elizabeth(Сергей) 18:05 Date of Service: Feb 17, 2024 Billing Provider: ANNALISA GRIFFIN NP Common Visit Codes: [id number] INP/OBS CARE(HIGH) Secondary Visit Codes: [id number] CARE PLAN 30 MINUTES ANNALISA GRIFFIN NP Feb 17, 2024 18:11
[2024-02-17] MEDS: ATORVASTATIN 20 MG TAB PO SCH (22:16)
[2024-02-18] VITALS (7 sets, daily range): BP systolic 103–133; BP diastolic 52–79; PULSE 54–82; RESP 18–19; TEMP 97.5–98.4; O2SAT 94–98
--- NOTE | 2024-02-18 15:33 | DVHDS2 ---
Discharge Summary Date of Admission Feb 11, 2024 at 10:21 Date of Discharge: Feb 18, 2024 Admitting Diagnosis Swelling to left lower extremity Labs/Diagnostic Data: Laboratory Results Test 02/17/24 07:01 02/16/24 17:52 02/13/24 17:17 02/13/24 09:25 Hemoglobin A1c 5.4 % A1C (<5.7) Troponin I High Sensitivity < 3 ng/L (</=34) Triglycerides Level 127 mg/dL (< 150) Cholesterol Level 244 mg/dL (< 200) LDL Cholesterol 190 mg/dL (< 100) HDL Cholesterol 50 mg/dL (40-59) White Blood Count 6.7 10^3/uL (4.4-10.8) Red Blood Count 4.82 10^6/uL (4.0-5.20) Hemoglobin 15.1 g/dL (12.2-16.2) Hematocrit 44.6 % (36.0-46.0) Mean Corpuscular Volume 92.7 fL (80.0-100.0) Mean Corpuscular Hemoglobin 31.4 pg (28.0-32.0) Mean Corpuscular Hemoglobin Concent 33.8 g/dL (32.0-36.0) Red Cell Distribution Width 12.9 % (11.8-14.3) Platelet Count 245 10^3/uL (140-450) Mean Platelet Volume 8.5 fL (6.9-10.8) Neutrophils (%) (Auto) 49.0 % (37.0-80.0) Lymphocytes (%) (Auto) 33.7 % (10.0-50.0) Monocytes (%) (Auto) 9.4 % (0.0-12.0) Eosinophils (%) (Auto) 6.1 % (0.0-7.0) Basophils (%) (Auto) 1.8 % (0.0-2.0) Neutrophils # (Auto) 3.3 10 ^3/uL (1.6-8.6) Lymphocytes # (Auto) 2.3 10 ^3/uL (0.4-5.4) Monocytes # (Auto) 0.6 10 ^3/uL (0-1.3) Eosinophils # (Auto) 0.4 10 ^3/uL (0-0.8) Basophils # (Auto) 0.1 10 ^3/uL (0-0.2) Nucleated Red Blood Cells 0.0 % Erythrocyte Sedimentation Rate 1 mm/hr (0-20) D-Dimer, Quantitative < 0.19 mg/L FEU (0.0-0.49) Sodium Level 141 mmol/L (136-145) Potassium Level 4.0 mmol/L (3.5-5.1) Chloride Level 108 mmol/L (98-107) Carbon Dioxide Level 27 mmol/L (20-31) Anion Gap 6 (5-15) Blood Urea Nitrogen 16 mg/dL (9-23) Creatinine 0.92 mg/dL (0.550-1.02) Glomerular Filtration Rate Calc 69 mL/min (>90) BUN/Creatinine Ratio 17.4 (10.0-20.0) Serum Glucose 93 mg/dL (74-106) Calcium Level 9.2 mg/dL (8.7-10.4) Total Bilirubin 0.5 mg/dL (0.2-1.0) Aspartate Amino Transferase (AST) 14 U/L (13-40) Alanine Aminotransferase (ALT) 13 U/L (7-40) Alkaline Phosphatase 72 U/L (46-116) C-Reactive Protein High Sensitivity 0.05 mg/dL (<1.0) Total Protein 6.2 g/dL (5.7-8.2) Albumin 4.0 g/dL (3.2-4.8) Free Thyroxine (T4) Calculated 1.04 ng/dL (0.89-1.76) Free Triiodothyronine (T3) pg/mL 2.35 pg/mL (2.3-4.2) Random Vancomycin Level < 3.0 ug/mL (5-10) Test 02/12/24 05:53 02/11/24 11:30 02/11/24 09:19 Thyroid Stimulating Hormone (TSH) 9.35 uIU/mL (0.55-4.78) Urine Color Light-yellow (Yellow) Urine Clarity Clear (Clear) Urine pH 6.5 (5.0-9.0) Urine Specific [place] 1.015 (1.001-1.035) Urine Protein Negative (Negative) Urine Ketones Negative (Negative) Urine Blood Negative /uL (Negative) Urine Nitrite Negative (Negative) Urine Bilirubin Negative (Negative) Urine Urobilinogen Normal mg/dL (Negative) Urine Leukocyte Esterase Negative /uL (Negative) Urine RBC 2 /hpf (0 - 4) Urine WBC None seen /hpf (0 - 5) Urine Squamous Epithelial Cells Few /hpf (<5) Urine Bacteria None seen /hpf (None Seen) Urine Glucose Normal mg/dL (Normal) B-Type Natriuretic Peptide 37.90 pg/mL (0-100) Other Laboratory Tests 02/16/24 17:52 Brief Hx & Hospital Course: History of Present Illness The patient is a 68-year-old female with multiple past medical history including mitral valve insufficiency, thyroid disease, and osteoporosis who presented to [facility] with complaint of left foot pain and swelling. Patient reports she had food injury January 20, 2024 after dropping a table object on her foot, it develops black discoloration, painful, and increased swelling. 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 Patient was seen and evaluated in the ED, laboratory data shows WBC 6.0 platelets 254, sodium 141, potassium 4.2, BUN 15, creatinine 0.87, GFR 73, glucose 100, BNP 37.90, blood pressure 185/100 trending down to 138/78, heart rate 72, temperature 98.2 F, O2 saturation 96% room air. Extremity venous studies shows evidence of deep venous thrombosis left lower extremity. Please see medication section in the computer. On my assessment, patient denied chest pain, no headache, no dizziness, no diaphoresis, no shortness of breath, no nausea, no vomiting, no fever, no chills. Patient was admitted for further evaluation and medical management. Course of hospitalization: Podiatry consultation was obtained. Patient had left lower extremity DVT study which was negative. Patient had multiple imaging including MRI, x-ray of left lower extremity. Patient reporting having dizziness and intractable nausea and vomiting when ambulating secondary to the extreme pain she was to her left foot. Patient had CT scan of the head which was negative for any acute pathology. Patient also had carotid Doppler study which was negative for any carotid stenosis. Patient also had echocardiogram, with cardiology consultation. Long discussion was made with the patient as well as Podiatry, with the patient agreed to be discharged home and follow up for possible repair of her Lisfranc injury to left ankle. Patient will be prescribed Zofran 4 mg as needed every 8 hours for nausea. All questions answered. Physical exam General: Alert and Oriented x3. No acute distress. Well-nourished. Eyes: EOMI. Anicteric. HENT: Moist mucous membranes. Lungs: Clear to auscultation bilaterally. No accessory muscle use. Cardiovascular: Regular rate and rhythm. No murmur. No JVD. Abdomen: Soft, non-tender and non-distended. No palpable masses. Extremities: No edema. Non-tender. Skin: No rashes or lesions. Warm. Neurologic: No focal neurological deficits. CN II-XII grossly intact, but not individually tested. Psychiatric: Cooperative. Appropriate mood and affect. Total time spent with patient discussing and formulating plan of care: 35 minutes. This medical document was created using an electronic medical record system with [employer] system. Although this document has been carefully reviewed, there may still be some phonetic and typographical errors. These areas are purely typographical due to imperfections of the software programs, and do not reflect any compromise in the patient's medical care. Consults/Reason for consult Cardiology: Dizziness Podiatry: Left ankle injury Condition at Discharge: Fair Final Diagnosis/Problems List Lisfranc injury to LLE Secondary Diagnosis: -acute on chronic hypoxic respiratory failure -intractable nausea and vomiting -dyslipidemia -atrial fibrillation Discharge Disposition: Home Discharge Instruct/Medications Diet: Cardiac 2g Na,low cholest Activity: No Restrictions, As Tolerated Follow Up/Referral: Follow up with Podiatry in 1-2 weeks Medications: Continue all home medications Zofran 4 mg tablet every 8 hours as needed for nausea. 36 Discharge Statement: "Patient was advised to return to the ER or call 911 if any headaches, dizziness, shortness of breath, chest pain, abdominal pain, bleeding, fevers, or worsening of medical condition. Patient was counseled about treatment plan, medications, possible side effects, patientverbalized understanding. All questions were answered to the best of my ability. This discharge took greater then 30 minutes in planning, reviewing documentation, counseling the patient, and discussing with other team members." ASSESSMENT ASSESSMENT Assessment Medical Lisfranc injury to left hand Date of Service: Feb 18, 2024 Billing Provider: ANNALISA GRIFFIN NP Common Visit Codes: 24551-MYG/OBS DISCH DAY >30min ANNALISA GRIFFIN NP Feb 18, 2024 15:33
[2024-02-18] MEDS ORDERED: ZOFR4T PO (15:34)
== END 2024-02-18 17:55 | disposition home or self-care (01) | DRG 913 ==
LOC: ER 08:38 → OVERFLOW 10:21 → WEST WING 14:39 → TELE-WESTW 02-16 18:20
PROVIDERS: ADMIT Internal Medicine; ATTEND Nurse Practitioner Acute Care
DX: S99.912A Unspecified injury of left ankle, initial encounter (principal); J96.21 Acute and chronic respiratory failure with hypoxia; M24.272 Disorder of ligament, left ankle; E78.5 Hyperlipidemia, unspecified; I34.0 Nonrheumatic mitral (valve) insufficiency; I48.0 Paroxysmal atrial fibrillation; I27.21 Secondary pulmonary arterial hypertension; M81.0 Age-related osteoporosis without current pathological fracture; E89.0 Postprocedural hypothyroidism; I25.10 Atherosclerotic heart disease of native coronary artery without angina pectoris; W20.8XXA Other cause of strike by thrown, projected or falling object, initial encounter; Z88.1 Allergy status to other antibiotic agents; Z88.0 Allergy status to penicillin; Z88.6 Allergy status to analgesic agent; Z88.8 Allergy status to other drugs, medicaments and biological substances; Z82.3 Family history of stroke; Z83.3 Family history of diabetes mellitus; Z85.850 Personal history of malignant neoplasm of thyroid; Z85.3 Personal history of malignant neoplasm of breast; Z97.4 Presence of external hearing-aid; Z90.711 Acquired absence of uterus with remaining cervical stump; Y93.89 Activity, other specified; Y92.89 Other specified places as the place of occurrence of the external cause; Y99.8 Other external cause status
CPT/HCPCS: 36415; 70450; 71045; 73630; 73718; 73721; 80048; 80053; 80061; 80202; 81001; 82565; 83036; 83880; 84439; 84443; 84481; 84484; 85025; 85379; 85652; 86141; 93005; 93306; 93886; 93971; G0378; J2405; J2470; J7060

== ENCOUNTER → 2024-03-17 | Outpatient (CLI) | payer BC, MEDICARE ==
[~2024-03-17] MED LIST: APIX5TAB PO; BECL80AE11 IN; DILT-14 PO; IPRIH IN; LEVO100T8 PO; ZOFR4T PO
[2024-03-17] MEDS: REGADENOSON 0.4 MG/5 ML SYRG IV ONE ×2 (08:53→09:03)
--- NOTE | 2024-03-17 12:53 | DVHSR ---
APPROVED REPORT Exam: Nuclear Stress Test BMI: 0 Stress Test Details HR Max Heart Rate (APMHR): 154.962507 bpm Target HR (85% APMHR): 130.341904 bpm BP ECG Stress ECG Conclusion no severe stress induced ischemia normal LVEF noted EF 75% ecg is SR low voltages, no ischemia noted NM EXAM: Myocardial Perfusion REST/STRESS Imaging Protocol: Rest Tc-99m/Stress Tc-99m 1 day Resting Data Rest SPECT myocardial perfusion imaging was performed in supine position 60 minutes following the int ravenous injection of 12.1 mCi of Tc-99m Sestamibi. Time of rest injection: 0750 Time of rest imagin Administration Route: IV Administration Site: Left Hand Pharmacologic Stress Pharmacologic stress test was performed by injecting Regadenoson 0.4 mg IV push followed by the intra venous injection of 30.5 mCi of Tc-99m Sestamibi. Time of stress injection: 0930 Time of stress imagin Administration Route: IV Administration Site: Left Hand Gated Stress SPECT was performed 90 minutes after stress injection. The images were gated to evaluate regional wall motion and calculate left ventricular ejection fracti on. Nuclear Conclusion Clinical Findings: negative for ischemia Nuclear Findings: negative for ischemia no severe stress induced ischemia normal LVEF noted EF 75% ecg is SR low voltages, no ischemia noted
== END | disposition home or self-care (01) ==
LOC: XYW 06:45
PROVIDERS: ATTEND Internal Medicine
DX: R07.9 Chest pain, unspecified (principal)
CPT/HCPCS: 78452; 93017; A9500; J2785

== ENCOUNTER 2024-04-08 10:19 | Day surgery (SDC) | payer BC, MEDICARE ==
[2024-04-02 11:15] LABS: Urine Bacteria None Seen /hpf (None Seen)
[2024-04-02 11:42] LABS: Basophils # (auto) 0.1 10 ^3/uL (0-0.2); Basophils % (auto) 1.2 % (0.0-2.0); Eosinophils # (auto) 0.2 10 ^3/uL (0-0.8); Eosinophils % (auto) 3.8 % (0.0-7.0); Hematocrit 46.8 % (36.0-46.0); Hemoglobin 15.4 g/dL (12.2-16.2); Lymphocytes % (auto) 33.2 % (10.0-50.0); Mean Corpuscular Hemoglobin 30.3 pg (28.0-32.0); Mean Corpuscular Hgb Conc. 32.8 g/dL (32.0-36.0); Mean Corpuscular Volume 92.4 fL (80.0-100.0); Monocytes # (auto) 0.5 10 ^3/uL (0-1.3); Monocytes % (auto) 7.7 % (0.0-12.0); Neutrophils # (auto) 3.2 10 ^3/uL (1.6-8.6); Neutrophils % (auto) 54.1 % (37.0-80.0); Nucleated Red Blood Cells % 0.1 %; Platelet Count (auto) 253 10^3/uL (140-450); Red Blood Cells 5.07 10^6/uL (4.0-5.20); Red Cell Distribution Width 12.8 % (11.8-14.3)
[2024-04-02 12:01] LABS: Urine Blood Negative /uL (Negative); Urine Clarity Clear (Clear); Urine Color Yellow (Yellow); Urine Mucus FEW (None Seen); Urine Protein, UAD Negative (Negative); Urine Specific Gravity 1.023 (1.001-1.035); Urine Squamous Epithelial Cell FEW /hpf (<5); Urine Urobilinogen Normal (Negative); Urine WBC 1 /HPF (0-5)
[2024-04-02 12:06] LABS: INR 0.98 (0.9-1.15); Partial Thromboplastin Time 27.7 SEC (24.5-34.5); Prothrombin Time 10.4 sec (9.3-11.8)
[2024-04-02 13:19] LABS: Alanine Aminotransferase 20 U/L (7-40); Albumin 4.8 g/dL (3.2-4.8); Alkaline Phosphatase 74 U/L (46-116); Anion Gap 9 (5-15); Aspartate Aminotransferase 15 U/L (13-40); BUN/Creatinine Ratio 18.1 (10.0-20.0); Blood Urea Nitrogen 13 mg/dL (9-23); Calcium 9.7 mg/dL (8.7-10.4); Carbon Dioxide 28 mmol/L (20-31); Chloride 105 mmol/L (98-107); Glucose 85 mg/dL (74-106); Potassium 4.1 mmol/L (3.5-5.1); Sodium 142 mmol/L (136-145)
[2024-04-02 13:20] LABS: Bilirubin, Total 0.5 mg/dL (0.2-1.0); Total Protein 6.9 g/dL (5.7-8.2)
[~2024-04-08] VITALS: Ht 162.6 cm; Wt 73.0 kg
[2024-04-08] MEDS ORDERED: DexAMETHasone SOD PHOS 10MG/1ML VIAL INJ ONE ×2 (12:29→12:30)
[2024-04-08] MEDS ORDERED: ONDANSETRON HCL 4 MG/2 ML VIAL ONE (12:29)
[2024-04-08] MEDS ORDERED: LIDOCAINE 1% INJ PF 5ML AMP ONE (12:29)
[2024-04-08] MEDS ORDERED: KETOROLAC TROMETH 30 MG/ML 1ML VIAL ONE (12:29)
[2024-04-08] MEDS ORDERED: GLYCOPYRROLATE 0.2 MG/ML 1ML VIAL ONE (12:30)
[2024-04-08] MEDS ORDERED: KETAMINE 50mg/ML 1ml syringe ONE (12:30)
[2024-04-08] MEDS ORDERED: PROPOFOL 10 MG/ML 20 ML IV ONE (12:30)
[2024-04-08] MEDS ORDERED: EPINEPHrine HCL 1 MG/1 ML AMP ONE (12:30)
[2024-04-08] MEDS ORDERED: GABAPENTIN 300 MG CAP PO ONE (12:45)
[2024-04-08] MEDS ORDERED: CELECOXIB 100 MG CAP PO ONE (12:45)
[2024-04-08] MEDS ORDERED: ACETAMINOPHEN IV 1000 MG/100ML (10MG/ML) IV ONE (12:45)
[2024-04-08] MEDS ORDERED: BUPIVACAINE 0.5% MPF INJ 30ML SDV IJ ONE (12:47)
[2024-04-08] MEDS ORDERED: Lidocaine/Epinephrine 1%-1:100,000 30ML VL ONE (12:48)
[2024-04-08] MEDS ORDERED: CELECOXIB 100 MG CAP ONE (12:57)
[2024-04-08] MEDS ORDERED: LIDOCAINE 2%HCL (LOCAL ANESTH.) INJ 10ml MDV ONE (13:05)
[2024-04-08] MEDS ORDERED: GABAPENTIN 100 MG CAP ONE (13:07)
[2024-04-08] MEDS ORDERED: ePHEDrine SULFATE 50 MG/ML AMP ONE (13:30)
[2024-04-08] MEDS ORDERED: fentaNYL CITRATE 100 MCG/2 ML VL ONE (13:34)
[2024-04-08] MEDS: CLINDAMYCIN 600MG IV 50 ML IV ONE (13:40)
--- NOTE | 2024-04-08 13:57 | DVHOP2 ---
Operative Report - 2 Report Details Date: 04/08/24 Preop Diagnosis: 1. Left lisfranc dislocation 2. Left foot pain Postop Diagnosis: Left foot lisfranc Surgeon: Samantha Stout MD Anesthesiologist: See anesthesia Anesthesia: General Implant: Arthrex 25 x 20 Staple Consent: The patient was informed of the risks and benefits of the procedure. These include but are not limited to complications of anesthesia, postoperative infection, incomplete relief of symptoms, recurrence of symptoms, damage to blood vessels, nerves and tendons, deep venous thrombosis, pulmonary embolism and possible need for repeat surgery in the future. Complications: None Estimated Blood Loss: Minimal Fluids: See anesthesia Findings: Consistent with the diagnosis Indications for Surgery: Worsening left foot pain Name of Procedure Performed 1. Left second TMT arthrodesis (32209) Procedure Details Procedure Details: PRE-PROCEDURE INFORMATION: In the pre-op holding area, the extremity to be operated on was clearly marked and the patient verified correct laterality of the marking. The patient was transferred to the OR table and placed in a supine position. A timeout was performed in which identification of the correct patient, procedure, location, and materials was done. The left foot and leg were prepped and draped in normal sterile fashion. The foot and leg were exsanguinated and the thigh tourniquet was inflated to 250 mmHg. DESCRIPTION OF PROCEDURE: Attention was directed to the left second metatarsal cuneiform joint where an incision was made on the dorsal aspect of the foot just over the second MC joint. The incision was deepened through blunt and sharp dissection. Care was taken throughout dissection to avoid damage to neurovascular structures including the deep peroneal nerve and dorsalis pedis artery as well as the extensor tendons. This incision was carried to the level of the second metatarsal cuneiform joint where the joint capsule was incised for inspection of the joint. There was notable degenerative changes of the articular cartilage of the joint. The periosteum of the second metatarsal base and medial cuneiform were reflected and utilizing a joint retractor, the joint was distracted and any remaining cartilage was removed using sharp instrumentation. The cartilage was removed to the level of subchondral bone on both sides of the joint. Utilizing a Arthrex staple, the staple was placed over the fusion site and adequate compression of the second metatarsal cuneiform joint was obtained. Proper placement of hardware as well as compression of the joint was verified on intraoperative fluoroscopy. All surgical wounds were irrigated copiously with saline and closed in layers with the aforementioned suture material. A dry sterile dressing was placed on the surgical extremity. The patient was placed in a boot POSTOPERATIVE INFORMATION: The patient tolerated the above noted procedure and anesthesia well and was transferred to the PACU with vital signs stable, and vascular status intact with capillary refill intact to all digits. Postoperative instructions reviewed in detail with the patient with written instructions provided. Patient will return to clinic in approximately 10-14 days for first postoperative visit. Patient has the number of the clinic and was instructed to call prior to that time should any problems, questions, or concerns arise. Condition Good Disposition Home SAMANTHA STOUT DPM Apr 08, 2024 13:57
[2024-04-08 14:00] VITALS: PULSE 77; RESP 11; O2SAT 99
[2024-04-08] MEDS ORDERED: FLUMAZENIL 0.1 MG/ML INJ 10ML MDV IV PRN (14:15)
[2024-04-08] MEDS ORDERED: hydrALAZINE HCL 20 MG/ML VL IV PRN (14:15)
[2024-04-08] MEDS ORDERED: ePHEDrine SULFATE 50 MG/ML AMP IV PRN (14:15)
[2024-04-08] MEDS ORDERED: NALOXONE HCL 0.4 MG/ML VIAL IV PRN (14:15)
[2024-04-08] MEDS ORDERED: oxyCODONE HCL 5MG TAB PO PRN (14:15)
[2024-04-08] MEDS ORDERED: fentaNYL CITRATE 100 MCG/2 ML VL IV PRN (14:15)
[2024-04-08] MEDS: HYDROmorphone HCL 2 MG/ML VL/or syr IV PRN (14:41)
[2024-04-08 15:15] VITALS: BP 140/80; PULSE 63; RESP 14; O2SAT 97
[2024-04-08] MEDS: ONDANSETRON HCL 4 MG/2 ML VIAL IV PRN (15:50)
== END 2024-04-08 17:20 | disposition home or self-care (01) ==
LOC: SUR 10:19
PROVIDERS: ATTEND Podiatrist
DX: S93.325A Dislocation of tarsometatarsal joint of left foot, initial encounter (principal); M79.672 Pain in left foot; I27.20 Pulmonary hypertension, unspecified; E66.9 Obesity, unspecified; Z68.27 Body mass index [BMI] 27.0-27.9, adult; Z79.899 Other long term (current) drug therapy; Z86.2 Personal history of diseases of the blood and blood-forming organs and certain disorders involving the immune mechanism; Z90.710 Acquired absence of both cervix and uterus; Z90.89 Acquired absence of other organs; Z98.890 Other specified postprocedural states; Z88.2 Allergy status to sulfonamides; Z88.8 Allergy status to other drugs, medicaments and biological substances; Z91.040 Latex allergy status; Z88.0 Allergy status to penicillin; Z91.011 Allergy to milk products; X58.XXXA Exposure to other specified factors, initial encounter; Y93.89 Activity, other specified; Y92.89 Other specified places as the place of occurrence of the external cause; Y99.8 Other external cause status
CPT/HCPCS: 28740; 36415; 80053; 81001; 85025; 85610; 85730; C1713; J0171; J1100; J1171; J1885; J2003; J2405; J2704; J3490; J0131

== ENCOUNTER → 2024-05-29 | Outpatient (CLI) | payer MEDICARE ==
[2024-05-29 07:52] LABS: Albumin 4.5 g/dL (3.2-4.8); Bilirubin, Direct 0.2 mg/dL (<0.3); Bilirubin, Total 0.9 mg/dL (0.2-1.0); Total Protein 6.6 g/dL (5.7-8.2)
== END | disposition home or self-care (01) ==
LOC: LAB 07:05
PROVIDERS: ATTEND Internal Medicine
DX: Z13.29 Encounter for screening for other suspected endocrine disorder (principal); E78.5 Hyperlipidemia, unspecified; E03.9 Hypothyroidism, unspecified
CPT/HCPCS: 36415; 80076; 82533

== ENCOUNTER 2024-07-28 10:45 | Outpatient (CLI) | payer MEDICARE ==
[2024-07-28 11:44] LABS: Albumin 4.5 g/dL (3.2-4.8); Bilirubin, Direct 0.1 mg/dL (<0.3); Bilirubin, Total 0.6 mg/dL (0.2-1.0); Total Protein 6.7 g/dL (5.7-8.2)
== END 2024-07-28 17:00 | disposition home or self-care (01) ==
LOC: LAB 10:45
PROVIDERS: ATTEND Internal Medicine
DX: I10 Essential (primary) hypertension (principal); E78.5 Hyperlipidemia, unspecified; Z12.11 Encounter for screening for malignant neoplasm of colon
CPT/HCPCS: 36415; 80061; 80076; 84443

== ENCOUNTER → 2024-08-13 | Outpatient (CLI) | payer MEDICARE ==
[2024-08-13 07:59] LABS: Alanine Aminotransferase 25.0 U/L (7-40); Albumin 4.3 g/dL (3.2-4.8); Alkaline Phosphatase 83.0 U/L (46-116); Bilirubin, Direct 0.3 mg/dL (<0.3); Bilirubin, Total 0.8 mg/dL (0.2-1.0); Creatine Kinase IFCC 54.0 U/L (34-145); Total Protein 6.2 g/dL (5.7-8.2)
== END | disposition home or self-care (01) ==
LOC: LAB 06:14
PROVIDERS: ATTEND Internal Medicine
DX: E78.5 Hyperlipidemia, unspecified (principal); E03.9 Hypothyroidism, unspecified; M79.672 Pain in left foot
CPT/HCPCS: 36415; 80076; 82550; 85652; 86141

== ENCOUNTER 2024-09-15 08:16 | Outpatient (CLI) | payer MEDICARE ==
[2024-09-15] MEDS ORDERED: LEVALBUTEROL HCL 1.25 MG/3 ML NEB ONE (09:00)
== END 2024-09-15 17:00 | disposition home or self-care (01) ==
LOC: RT 08:16
PROVIDERS: ATTEND Internal Medicine Pulmonary Disease
DX: J96.12 Chronic respiratory failure with hypercapnia (principal); I27.20 Pulmonary hypertension, unspecified; J45.909 Unspecified asthma, uncomplicated; Z79.899 Other long term (current) drug therapy
CPT/HCPCS: 94060; 94618; 94727; 94729

== ENCOUNTER 2024-09-29 06:05 | Outpatient (CLI) | payer MEDICARE ==
[2024-09-29 07:28] LABS: Alanine Aminotransferase 21.0 U/L (7-40); Alkaline Phosphatase 84.0 U/L (46-116); Total Protein 6.4 g/dL (5.7-8.2)
[2024-09-29 07:29] LABS: Albumin 4.4 g/dL (3.2-4.8)
[2024-09-29 07:30] LABS: Bilirubin, Direct 0.2 mg/dL (<0.3); Bilirubin, Total 0.7 mg/dL (0.2-1.0); Cholesterol 191.0 mg/dL (< 200); Creatine Kinase IFCC 52.0 U/L (34-145); HDL Cholesterol 54.0 mg/dL (40-59)
[2024-09-29 07:34] LABS: Triglycerides 190.0 mg/dL (< 150)
== END 2024-09-29 17:00 | disposition home or self-care (01) ==
LOC: LAB 06:05
PROVIDERS: ATTEND Internal Medicine
DX: I10 Essential (primary) hypertension (principal); E78.5 Hyperlipidemia, unspecified; E03.9 Hypothyroidism, unspecified; Z79.899 Other long term (current) drug therapy
CPT/HCPCS: 36415; 80061; 80076; 82550; 83036